=== PATIENT | male | born 1955 | race Caucasian/White ===

== ENCOUNTER → 2016-09-27 | Outpatient (CLI) | payer MEDICARE, MEDICAID ==
[~2016-09-27] VITALS: Ht 162.6 cm; Wt 63.5 kg
[~2016-09-27] MED LIST: ASPI81TA85 PO; ATEN50TA2 PO; CLAR10CA3 PO; COLA100C PO; FLON50SP; LIDOCAINE 2% INJ 100 MG/5 ML SDV (FOR ANES.) As Ordered ONE; LISI-542 PO; MIRA0.12 PO; NS 1,000 ML IV SCH; PRIL40CA PO; PROPOFOL 200 MG/20 ML VIAL As Ordered ONE; RANI15TA PO; TRAZ100T4 PO; VITA500046 PO
--- NOTE | 2016-09-27 11:23 | ROOR ---
Patient Name: Isaías Mckeon Procedure Date: 09/27/2016 10:57 AM Date of : 1955 Age: 60 Room: [facility] Gender: Male Note Status: Finalized Procedure: Colonoscopy Indications: Screening for colorectal malignant neoplasm Providers: Umer SOLIMAN MD Referring MD: See Booth MD Requesting Provider: Medicines: Monitored Anesthesia Care Complications: No immediate complications. Procedure: Pre-Anesthesia Assessment: - The heart rate, respiratory rate, oxygen saturations, blood pressure, adequacy of pulmonary ventilation, and response to care were monitored throughout the procedure. The Colonoscope was introduced through the anus and advanced to the cecum, identified by appendiceal orifice and ileocecal valve. The colonoscopy was performed without difficulty. The patient tolerated the procedure well. The quality of the bowel preparation was good. Findings: The perianal and digital rectal examinations were normal. (Exam: Complete, Prep: Excellent.) The colon (entire examined portion) appeared normal. Impression: (Exam: Complete, Prep: Excellent.) - The entire colon is normal. - No specimens collected. Recommendation: - Repeat colonoscopy in 10 years for screening purposes. Umer Soliman MD Umer SOLIMAN MD 09/27/2016 11:23:20 AM This report has been signed electronically. Number of Addenda: 0 Note Initiated On: 09/27/2016 10:57 AM Estimated Blood Loss: Estimated blood loss: none.
[2016-09-27 11:45] VITALS: BP 117/81
== END | disposition home or self-care (01) ==
LOC: M OPP 08:12
PROVIDERS: ATTEND Internal Medicine Gastroenterology
DX: Z12.11 Encounter for screening for malignant neoplasm of colon (principal); K59.09 Other constipation; I12.9 Hypertensive chronic kidney disease with stage 1 through stage 4 chronic kidney disease, or unspecified chronic kidney disease; N18.3 Chronic kidney disease, stage 3 (moderate); E78.5 Hyperlipidemia, unspecified; K58.9 Irritable bowel syndrome, unspecified; K21.9 Gastro-esophageal reflux disease without esophagitis; M19.90 Unspecified osteoarthritis, unspecified site; Q90.9 Down syndrome, unspecified; F03.90 Unspecified dementia, unspecified severity, without behavioral disturbance, psychotic disturbance, mood disturbance, and anxiety; Z86.73 Personal history of transient ischemic attack (TIA), and cerebral infarction without residual deficits; Z97.2 Presence of dental prosthetic device (complete) (partial); Z79.82 Long term (current) use of aspirin; Z79.899 Other long term (current) drug therapy; Z88.8 Allergy status to other drugs, medicaments and biological substances

== ENCOUNTER → 2017-01-13 | Outpatient (CLI) | payer MEDICARE, MEDICAID ==
[~2017-01-13] MED LIST changes: -COLA100C PO; +COLA100C3 PO; -LIDOCAINE 2% INJ 100 MG/5 ML SDV (FOR ANES.) As Ordered ONE; -NS 1,000 ML IV SCH; -PROPOFOL 200 MG/20 ML VIAL As Ordered ONE
[2017-01-13 13:22] LABS: BASO % 0.6 % (0.0-1.0); EOS # 0.3 K/mm3 (0.0-0.50); EOS % 4.7 % (0.0-3.0); LARGE UNSTAINED CELL # 0.1 K/mm3 (0.0-0.4); LARGE UNSTAINED CELL % 2.3 % (0.0-4.0); LYMPH # 1.3 K/mm3 (1.5-4.5); LYMPH % 22.5 % (24.0-44.0); MEAN CORPUSCULAR HEMOGLOBIN 31.6 pg (27.0-33.0); MEAN CORPUSCULAR HGB CONC 33.3 g/dl (32.0-36.5); MEAN CORPUSCULAR VOLUME 94.9 fl (80.0-96.0); MONO # 0.4 K/mm3 (0.0-0.8); NEUTROPHILS # 3.5 K/mm3 (1.8-7.7); PLATELET COUNT, AUTOMATED 198 k/mm3 (150-450); RED CELL DISTRIBUTION WIDTH 11.9 % (11.5-14.5); WHITE BLOOD COUNT 5.6 K/mm3 (4.0-10.0)
[2017-01-13 13:35] LABS: ALBUMIN 3.7 GM/DL (3.2-5.2); BILIRUBIN,TOTAL 0.5 MG/DL (0.2-1.0); CALCIUM LEVEL 8.5 MG/DL (8.8-10.2); CREATININE FOR GFR 1.33 MG/DL (0.70-1.30); GLOMERULAR FILTRATION RATE 57.8 (>49); TOTAL PROTEIN 7.4 GM/DL (6.4-8.2)
== END ==
LOC: M WUC 08:44
PROVIDERS: ATTEND Family Medicine
DX: N18.3 Chronic kidney disease, stage 3 (moderate) (principal); E55.9 Vitamin D deficiency, unspecified

== ENCOUNTER → 2017-06-09 | Outpatient (CLI) | payer MEDICARE, MEDICAID ==
[~2017-06-09] MED LIST changes: -COLA100C3 PO; +COLA100C5 PO; +TRAZ-136 PO; -TRAZ100T4 PO
[2017-06-09 09:51] LABS: ALBUMIN 3.8 GM/DL (3.2-5.2); ALBUMIN/GLOBULIN RATIO 0.93 (1.00-1.93); ALKALINE PHOSPHATASE 96 U/L (45-117); ALT/SGPT 32 U/L (12-78); ANION GAP 4 MEQ/L (8-16); AST/SGOT 20 U/L (15-37); BILIRUBIN,TOTAL 0.5 MG/DL (0.2-1.0); BLOOD UREA NITROGEN 24 MG/DL (7-18); CARBON DIOXIDE LEVEL 29 MEQ/L (21-32); CHLORIDE LEVEL 105 MEQ/L (98-107); CHOLESTEROL LEVEL 147 MG/DL (<200); GLOMERULAR FILTRATION RATE 54.5 (>49); GLUCOSE, FASTING 82 MG/DL (80-110); POTASSIUM SERUM 4.5 MEQ/L (3.5-5.1); SODIUM LEVEL 138 MEQ/L (136-145); TOTAL PROTEIN 7.9 GM/DL (6.4-8.2); TRIGLYCERIDES LEVEL 96 MG/DL (<150)
[2017-06-09 10:36] LABS: VITAMIN B12 LEVEL 549 PG/ML (247-911)
== END ==
LOC: M WUC 08:24
PROVIDERS: ATTEND Family Medicine
DX: E78.5 Hyperlipidemia, unspecified (principal); Z12.5 Encounter for screening for malignant neoplasm of prostate; N18.3 Chronic kidney disease, stage 3 (moderate)
CPT/HCPCS: 36415; 80053; 80061; 82550; 82607; 86140; G0103

== ENCOUNTER → 2017-09-21 | Outpatient (CLI) | payer MEDICARE, MEDICAID ==
[2017-09-21 18:33] LABS: BASO % 0.6 % (0.0-1.0); EOS # 0.2 10^3/uL (0.0-0.50); EOS % 4.3 % (0.0-3.0); HEMATOCRIT 47.6 % (42.0-52.0); HEMOGLOBIN 16.2 g/dl (14.0-18.0); IMMATURE GRANULOCYTE % 0.2 % (0-0); LYMPH # 1.3 10^3/uL (1.5-4.5); LYMPH % 24.1 % (24.0-44.0); MEAN CORPUSCULAR HEMOGLOBIN 30.7 pg (27.0-33.0); MEAN CORPUSCULAR VOLUME 90.3 fl (80.0-96.0); MONO # 0.5 10^3/uL (0.0-0.8); MONO % 10.1 % (0.0-5.0); NEUTROPHILS # 3.3 10^3/uL (1.8-7.7); NEUTROPHILS % 60.7 % (36.0-66.0); PLATELET COUNT, AUTOMATED 215 10^3/uL (150-450); RED BLOOD COUNT 5.27 10^6/uL (4.30-6.10); RED CELL DISTRIBUTION WIDTH 12.1 % (11.5-14.5); WHITE BLOOD COUNT 5.4 10^3/uL (4.0-10.0)
[2017-09-21 18:37] LABS: ESTIMATED AVERAGE GLUCOSE 114 MG/DL (60-110); HEMOGLOBIN A1c 5.6 %
[2017-09-21 18:40] LABS: ALBUMIN 3.8 GM/DL (3.2-5.2); ALBUMIN/GLOBULIN RATIO 1.03 (1.00-1.93); ALKALINE PHOSPHATASE 101 U/L (45-117); ALT/SGPT 26 U/L (12-78); ANION GAP 3 MEQ/L (8-16); AST/SGOT 22 U/L (7-37); BILIRUBIN,TOTAL 0.4 MG/DL (0.2-1.0); BLOOD UREA NITROGEN 19 MG/DL (7-18); CALCIUM LEVEL 8.6 MG/DL (8.8-10.2); CARBON DIOXIDE LEVEL 30 MEQ/L (21-32); CHLORIDE LEVEL 108 MEQ/L (98-107); FREE T4 1.05 NG/DL (0.76-1.46); GLOMERULAR FILTRATION RATE 59.4 (>49); GLUCOSE, FASTING 87 MG/DL (80-110); POTASSIUM SERUM 4.9 MEQ/L (3.5-5.1); SODIUM LEVEL 141 MEQ/L (136-145); TOTAL PROTEIN 7.5 GM/DL (6.4-8.2)
[2017-09-22 10:42] LABS: TOTAL 25(OH) VITAMIN D 73.1 NG/ML (30.0-100.0)
[2017-09-22 14:14] LABS: PTH INTACT 40.6 PG/ML (14.0-72.0)
== END ==
LOC: M WUC 08:29
DX: E78.5 Hyperlipidemia, unspecified (principal); I12.9 Hypertensive chronic kidney disease with stage 1 through stage 4 chronic kidney disease, or unspecified chronic kidney disease; N18.3 Chronic kidney disease, stage 3 (moderate); Z79.899 Other long term (current) drug therapy
CPT/HCPCS: 84443

== ENCOUNTER → 2018-01-31 | Outpatient (REF) | payer MEDICARE, MEDICAID ==
[2018-01-31 19:50] LABS: BASO # 0.1 10^3/uL (0.0-0.2); BASO % 0.9 % (0.0-1.0); EOS # 0.3 10^3/uL (0.0-0.50); EOS % 4.3 % (0.0-3.0); HEMATOCRIT 45.9 % (42.0-52.0); HEMOGLOBIN 15.3 g/dl (13.5-17.5); IMMATURE GRANULOCYTE % 0.2 % (0-3.0); LYMPH # 1.4 10^3/uL (1.5-4.5); LYMPH % 23.8 % (24.0-44.0); MEAN CORPUSCULAR HEMOGLOBIN 30.5 pg (27.0-33.0); MEAN CORPUSCULAR HGB CONC 33.3 g/dl (32.0-36.5); MEAN CORPUSCULAR VOLUME 91.4 fl (80.0-96.0); MONO # 0.6 10^3/uL (0.0-0.8); NEUTROPHILS # 3.5 10^3/uL (1.8-7.7); NEUTROPHILS % 60.8 % (36.0-66.0); PLATELET COUNT, AUTOMATED 201 10^3/uL (150-450); RED BLOOD COUNT 5.02 10^6/uL (4.30-6.10); RED CELL DISTRIBUTION WIDTH 12.4 % (11.5-14.5); WHITE BLOOD COUNT 5.8 10^3/uL (4.0-10.0)
[2018-01-31 20:13] LABS: ALBUMIN 3.6 GM/DL (3.2-5.2); ALKALINE PHOSPHATASE 95 U/L (45-117); ALT/SGPT 28 U/L (12-78); ANION GAP 5 MEQ/L (8-16); AST/SGOT 19 U/L (7-37); BILIRUBIN,TOTAL 0.4 MG/DL (0.2-1.0); BLOOD UREA NITROGEN 16 MG/DL (7-18); CALCIUM LEVEL 8.3 MG/DL (8.8-10.2); CARBON DIOXIDE LEVEL 28 MEQ/L (21-32); CHLORIDE LEVEL 106 MEQ/L (98-107); CREATININE FOR GFR 1.34 MG/DL (0.70-1.30); GLOMERULAR FILTRATION RATE 57.1 (>49); GLUCOSE, FASTING 86 MG/DL (70-100); POTASSIUM SERUM 4.7 MEQ/L (3.5-5.1); PSA SCREENING 1.68 NG/ML (< 4.0); SODIUM LEVEL 139 MEQ/L (136-145); TOTAL PROTEIN 7.2 GM/DL (6.4-8.2)
== END ==
LOC: M LABDRWAD 12:12
DX: N18.3 Chronic kidney disease, stage 3 (moderate) (principal); Z12.5 Encounter for screening for malignant neoplasm of prostate
CPT/HCPCS: 80053

== ENCOUNTER → 2018-06-06 | Outpatient (CLI) | payer MEDICARE, MEDICAID ==
[2018-06-06 18:29] LABS: BLOOD UREA NITROGEN 13 MG/DL (7-18); CREATININE FOR GFR 1.24 MG/DL (0.70-1.30); GLUCOSE, FASTING 86 MG/DL (70-100)
[2018-06-06 18:30] LABS: ALBUMIN 3.8 GM/DL (3.2-5.2); ALBUMIN/GLOBULIN RATIO 1.06 (1.00-1.93); ALKALINE PHOSPHATASE 98 U/L (45-117); ALT/SGPT 26 U/L (12-78); ANION GAP 9 MEQ/L (8-16); AST/SGOT 16 U/L (7-37); BILIRUBIN,TOTAL 0.5 MG/DL (0.2-1.0); C REACTIVE PROTEIN QUANTITATIV < 0.30 MG/DL (0.00-0.30); CALCIUM LEVEL 8.9 MG/DL (8.8-10.2); CARBON DIOXIDE LEVEL 23 MEQ/L (21-32); CHLORIDE LEVEL 109 MEQ/L (98-107); CHOLESTEROL LEVEL 126 MG/DL (<200); CHOLESTEROL RISK RATIO 2.571 (<5); CPK CREATINE PHOSPHOKINASE 95 U/L (39-308); GLOMERULAR FILTRATION RATE > 60.0 (>49); HDL CHOLESTEROL 49 MG/DL (>40); LDL CHOLESTEROL 59 MG/DL (<100); NON-HDL-C 77 MG/DL; POTASSIUM SERUM 4.3 MEQ/L (3.5-5.1); SODIUM LEVEL 141 MEQ/L (136-145); TOTAL PROTEIN 7.4 GM/DL (6.4-8.2); TRIGLYCERIDES LEVEL 91 MG/DL (<150)
[2018-06-06 19:20] LABS: ESTIMATED AVERAGE GLUCOSE 111 MG/DL (60-110); HEMOGLOBIN A1c 5.5 %
[2018-06-09 14:13] LABS: INSULIN LEVEL 9.6 uIU/mL (2.6-24.9)
== END ==
LOC: M WUC 08:34
DX: E78.5 Hyperlipidemia, unspecified (principal); R73.02 Impaired glucose tolerance (oral)
CPT/HCPCS: 82550

== ENCOUNTER → 2018-10-30 | Outpatient (CLI) | payer MEDICARE, MEDICAID ==
[~2018-10-30] MED LIST changes: -TRAZ-136 PO; +TRAZ-163 PO
[2018-10-30 13:18] LABS: BASO % 0.7 % (0.0-1.0); EOS # 0.2 10^3/uL (0.0-0.50); EOS % 2.9 % (0.0-3.0); HEMATOCRIT 44.4 % (42.0-52.0); HEMOGLOBIN 14.9 g/dl (13.5-17.5); LYMPH # 1.2 10^3/uL (1.5-4.5); LYMPH % 19.7 % (24.0-44.0); MEAN CORPUSCULAR HEMOGLOBIN 30.5 pg (27.0-33.0); MEAN CORPUSCULAR HGB CONC 33.6 g/dl (32.0-36.5); MONO # 0.6 10^3/uL (0.0-0.8); MONO % 9.7 % (0.0-5.0); NEUTROPHILS # 3.9 10^3/uL (1.8-7.7); NEUTROPHILS % 66.7 % (36.0-66.0); PLATELET COUNT, AUTOMATED 192 10^3/uL (150-450); RED BLOOD COUNT 4.88 10^6/uL (4.30-6.10); WHITE BLOOD COUNT 5.9 10^3/uL (4.0-10.0)
[2018-10-30 13:33] LABS: ALBUMIN 3.8 GM/DL (3.2-5.2); BILIRUBIN,TOTAL 0.6 MG/DL (0.2-1.0); CALCIUM LEVEL 8.6 MG/DL (8.8-10.2); CREATININE FOR GFR 1.33 MG/DL (0.70-1.30); GLOMERULAR FILTRATION RATE 57.4 (>49); POTASSIUM SERUM 4.5 MEQ/L (3.5-5.1); TOTAL PROTEIN 7.1 GM/DL (6.4-8.2)
[2018-10-30 15:56] LABS: PTH INTACT 50.5 PG/ML (18.5-88.0)
== END ==
LOC: M WUC 08:28
PROVIDERS: ATTEND Family Medicine
DX: N18.3 Chronic kidney disease, stage 3 (moderate) (principal)

== ENCOUNTER → 2019-02-10 | Outpatient (CLI) | payer MEDICARE, MEDICAID ==
--- NOTE | 2019-02-10 11:47 | REP ---
Unilateral right ribs PA chest of five views History: Strain Comparison: 07/28/2012 The lungs are clear. The heart is normal in size. The pulmonary vasculature is normal in appearance. Impression: No acute disease. Electronically Signed by Jann Frausto MD 02/10/2019 11:38 A
== END ==
LOC: M WUC 11:15
PROVIDERS: ATTEND Physician Assistant
DX: S29.011A Strain of muscle and tendon of front wall of thorax, initial encounter (principal); X58.XXXA Exposure to other specified factors, initial encounter; Y92.89 Other specified places as the place of occurrence of the external cause

== ENCOUNTER → 2019-02-14 | Outpatient (CLI) | payer MEDICARE, MEDICAID ==
[2019-02-14 18:04] LABS: ALBUMIN 3.4 GM/DL (3.2-5.2); ALT/SGPT 25 U/L (12-78); BILIRUBIN,TOTAL 0.4 MG/DL (0.2-1.0); BLOOD UREA NITROGEN 14 MG/DL (7-18); CALCIUM LEVEL 8.5 MG/DL (8.8-10.2); CARBON DIOXIDE LEVEL 27 MEQ/L (21-32); CHLORIDE LEVEL 107 MEQ/L (98-107); CHOLESTEROL LEVEL 123 MG/DL (<200); CHOLESTEROL RISK RATIO 2.928 (<5); FREE T4 0.99 NG/DL (0.76-1.46); GLOMERULAR FILTRATION RATE > 60.0 (>49); GLUCOSE, FASTING 75 MG/DL (70-100); HDL CHOLESTEROL 42 MG/DL (>40); LDL CHOLESTEROL 67 MG/DL (<100); NON-HDL-C 81 MG/DL; POTASSIUM SERUM 4.3 MEQ/L (3.5-5.1); SODIUM LEVEL 143 MEQ/L (136-145); TRIGLYCERIDES LEVEL 71 MG/DL (<150)
[2019-02-14 18:11] LABS: HEMOGLOBIN A1c 5.6 %
[2019-02-14 18:29] LABS: APPEARANCE, URINE CLEAR (CLEAR); BACTERIA, URINE AUTO NEGATIVE (NEGATIVE); BILIRUBIN, URINE AUTO NEGATIVE (NEGATIVE); BLOOD, URINE BLOOD NEGATIVE (NEGATIVE); COLOR, URINE YELLOW (YELLOW); GLUCOSE, URINE (UA) AUTO NEGATIVE (NEGATIVE); KETONE, URINE AUTO NEGATIVE (NEGATIVE); LEUKOCYTE ESTERASE, URINE AUTO NEGATIVE (NEGATIVE); MUCUS, URINE SMALL (NEGATIVE); NITRITE, URINE AUTO NEGATIVE (NEGATIVE); PROTEIN, URINE AUTO NEGATIVE (NEGATIVE); RBC, URINE AUTO 3 /HPF (0-3); SPECIFIC GRAVITY URINE AUTO 1.013 (1.002-1.035); SQUAMOUS EPITHELIAL CELL UR AU 0 /HPF (0-6); UROBILINOGEN, URINE AUTO 0.2 mg/dL (0.0-2.0); WBC, URINE AUTO 1 /HPF (0-3)
[2019-02-14 18:32] LABS: MALB URINE SIEMENS 13.7 MG/L; MAU/CREAT RATIO 11.7 MCG/MG (0.0-30.0)
== END ==
LOC: M WUC 08:44
PROVIDERS: ATTEND Family Medicine
DX: R73.02 Impaired glucose tolerance (oral) (principal)

== ENCOUNTER → 2019-07-02 | Outpatient (CLI) | payer MEDICARE, MEDICAID ==
[2019-07-02 10:09] LABS: BASO % 0.6 % (0.0-1.0); EOS # 0.1 10^3/uL (0.0-0.5); EOS % 2.3 % (0.0-3.0); HEMATOCRIT 45.3 % (42.0-52.0); HEMOGLOBIN 15.3 g/dl (13.5-17.5); LYMPH # 0.8 10^3/uL (1.5-5.0); LYMPH % 16.2 % (24.0-44.0); MEAN CORPUSCULAR HEMOGLOBIN 30.8 pg (27.0-33.0); MEAN CORPUSCULAR HGB CONC 33.8 g/dl (32.0-36.5); MEAN CORPUSCULAR VOLUME 91.1 fl (80.0-96.0); MONO # 0.6 10^3/uL (0.0-0.8); MONO % 12.5 % (0.0-5.0); NEUTROPHILS # 3.3 10^3/uL (1.5-8.5); NEUTROPHILS % 68.2 % (36.0-66.0); PLATELET COUNT, AUTOMATED 188 10^3/uL (150-450); RED BLOOD COUNT 4.97 10^6/uL (4.30-6.10); WHITE BLOOD COUNT 4.9 10^3/uL (4.0-10.0)
[2019-07-02 10:39] LABS: ALBUMIN 3.6 GM/DL (3.2-5.2); ALT/SGPT 25 U/L (12-78); BILIRUBIN,TOTAL 0.5 MG/DL (0.2-1.0); BLOOD UREA NITROGEN 13 MG/DL (7-18); CALCIUM LEVEL 8.6 MG/DL (8.8-10.2); CARBON DIOXIDE LEVEL 29 MEQ/L (21-32); CHLORIDE LEVEL 107 MEQ/L (98-107); CREATININE FOR GFR 1.21 MG/DL (0.70-1.30); GLOMERULAR FILTRATION RATE > 60.0 (>49); GLUCOSE, FASTING 79 MG/DL (70-100); POTASSIUM SERUM 4.4 MEQ/L (3.5-5.1); SODIUM LEVEL 141 MEQ/L (136-145); TOTAL PROTEIN 7.3 GM/DL (6.4-8.2)
[2019-07-02 10:45] LABS: PTH INTACT 56.2 PG/ML (18.5-88.0); TOTAL 25(OH) VITAMIN D 92.6 NG/ML (30.0-100.0)
[2019-07-02 10:48] LABS: HEMOGLOBIN A1c 5.1 %
== END ==
LOC: M WUC 08:17
PROVIDERS: ATTEND Family Medicine
DX: R73.02 Impaired glucose tolerance (oral) (principal); Z12.5 Encounter for screening for malignant neoplasm of prostate; E55.9 Vitamin D deficiency, unspecified
CPT/HCPCS: 36415; 80053; 82306; 83036; 83970; 85025; 85046; G0103

== ENCOUNTER 2019-07-25 09:29 | Inpatient (IN) | payer MEDICARE, MEDICAID ==
[~2019-07-25] VITALS: Ht 157.5 cm; Wt 66.6 kg
[2019-07-25] MEDS: DOCUSATE SODIUM 100 MG CAP PO SCH ×2 (09:00→21:43)
[~2019-07-25 09:29] MED LIST changes: -FLON50SP; +FLON50SP NARES
--- NOTE | 2019-07-25 10:10 | REP ---
CT brain without contrast: History: CVA. Comparison study: September 27, 2013. Findings: Preliminary digital upholstery technician radiograph is unremarkable. The bony calvarium is intact. Vascular calcification is again noted in the distal internal carotid and distal vertebral arteries. There is mild generalized volume loss. There is no evidence of intracranial hemorrhage. There are small vessel changes in the periventricular white matter of the frontal lobes unchanged. No acute infarction is seen. No mass or midline shift is observed. Impression: No acute intracranial abnormality. Small vessel atherosclerotic changes. Electronically Signed by Catalino Barrios MD 07/25/2019 10:02 A
[2019-07-25] MEDS ORDERED: VITA500045 PO (10:21)
[2019-07-25] MEDS ORDERED: ATEN25TA PO (10:21)
[2019-07-25] MEDS ORDERED: ATOR1TAB21 PO (10:21)
[2019-07-25] MEDS ORDERED: OMEP-221 PO (10:21)
[2019-07-25] MEDS ORDERED: FLUTISP NARES (10:23)
[2019-07-25 10:42] LABS: BASO # 0.1 10^3/uL (0.0-0.2); BASO % 1.1 % (0.0-1.0); EOS # 0.1 10^3/uL (0.0-0.5); HEMATOCRIT 45.2 % (42.0-52.0); HEMOGLOBIN 15.4 g/dl (13.5-17.5); LYMPH # 1.1 10^3/uL (1.5-5.0); LYMPH % 17.9 % (24.0-44.0); MEAN CORPUSCULAR HEMOGLOBIN 30.9 pg (27.0-33.0); MEAN CORPUSCULAR HGB CONC 34.1 g/dl (32.0-36.5); MEAN CORPUSCULAR VOLUME 90.6 fl (80.0-96.0); MONO # 0.8 10^3/uL (0.0-0.8); MONO % 11.8 % (0.0-5.0); NEUTROPHILS # 4.3 10^3/uL (1.5-8.5); NEUTROPHILS % 66.9 % (36.0-66.0); PLATELET COUNT, AUTOMATED 200 10^3/uL (150-450); RED BLOOD COUNT 4.99 10^6/uL (4.30-6.10); WHITE BLOOD COUNT 6.4 10^3/uL (4.0-10.0)
[2019-07-25 10:52] LABS: INR 1.1; PROTHROMBIN TIME 13.9 SECONDS (11.8-14.0)
[2019-07-25 10:54] LABS: PARTIAL THROMBOPLASTIN TIME 27.2 SECONDS (25.0-38.4)
--- NOTE | 2019-07-25 11:06 | REP ---
Portable chest x-ray: Single view. History: CVA. Comparison chest x-ray: February 10, 2019. Findings: EKG monitoring electrodes are seen. The lungs are symmetrically aerated and free of infiltrate. Pleural angles are sharp. The aorta somewhat tortuous. Heart size is normal. No significant bony abnormality. Impression: No active disease. Electronically Signed by Catalino Barrios MD 07/25/2019 10:57 A
[2019-07-25 11:07] LABS: BLOOD UREA NITROGEN 18 MG/DL (7-18); CALCIUM LEVEL 8.7 MG/DL (8.8-10.2); CARBON DIOXIDE LEVEL 26 MEQ/L (21-32); CHLORIDE LEVEL 109 MEQ/L (98-107); CK-MB VALUE MASS 1.3 NG/ML (<3.6); CPK CREATINE PHOSPHOKINASE 106 U/L (39-308); CREATININE FOR GFR 1.41 MG/DL (0.70-1.30); GLOMERULAR FILTRATION RATE 53.7 (>49); GLUCOSE, FASTING 119 MG/DL (70-100); MB/CK RELATIVE INDEX 1.23 (< OR =4); POTASSIUM SERUM 3.8 MEQ/L (3.5-5.1); SODIUM LEVEL 142 MEQ/L (136-145); TROPONIN I < 0.02 NG/ML (< 0.10)
--- NOTE | 2019-07-25 12:17 | ECGEPIP ---
[facility] - ED Test Date: 2019-07-25 Pat Name: NELI FRANKLIN Department: Room: - Gender: Male Hot Box Checker: Austin NAVARRO : 1955 Requested By: Waldo Solis Order Number: [id number] Reading MD: Elise Villarreal Measurements Intervals [place] Rate: 83 P: 47 CA: 210 QRS: -1 QRSD: 93 T: 12 QT: 338 QTc: 398 Interpretive Statements SINUS RHYTHM WITH FIRST DEGREE AV BLOCK NONSPECIFIC T-WAVE ABNORMALITY NO PRIOR Electronically Signed on 07-25-2019 12:16:41 EST by Elise Villarreal
[2019-07-25] MEDS ORDERED: FLUTICASONE PROP 0.05% NASAL SPRAY 16 GM (FLONASE) NARES PRN (13:45)
--- NOTE | 2019-07-25 13:51 | HPEPDOC ---
[facility] Medical History & Physical Date of Admission Jul 25, 2019 Date of Service: Jul 25, 2019 Primary Care Physician: See Booth M.D. History and Physical CHIEF COMPLAINT: neurologic changes HISTORY OF PRESENT ILLNESS: Patient is from [facility], and during breakfast was noted to be drooling and staring at staff. Staff noted patient was incoherent, and this is a change from his usual baseline. He typically can point and shake his head to communicate, but is otherwise non-verbal. After breakfast required assistance to walk, and complained of headache. In EMS, noted left sided deficits, non-productive cough. In ER, family at bedside. Patient is responsive, and family states almost back to baseline, but still has left sided deficits, but much improved. PAST MEDICAL HISTORY: Hypertension Mental retardation, mild Dementia, Alzheimer's Allergic Rhinitis Xerosis Hyperlipidemia 2B GERD CKD III ALLERGIES: Please see below. REVIEW OF SYSTEMS: Unable to obtain, patient is non-verbal. HOME MEDICATIONS: Please see below. PHYSICAL EXAMINATION: VITAL SIGNS: See below GENERAL APPEARANCE: NAD, lying comfortably in bed HEENT: NC/AT, PERRL, no facial asymmetry CARDIOVASCULAR: +S1S2, RRR LUNGS: CTA B/L ABDOMEN: soft, NT, +BS NEUROLOGICAL: sensation appears intact throughout, diminished strength LUE LABORATORY DATA: See below. MICROBIOLOGY: Please see below. ASSESSMENT: 63yo male for left sided deficits, resolving, concerns for TIA/CVA. PLAN: #left sided deficits - resolving - already on statin therapy - CT head negative - repeat CT tomorrow, doubt patient will tolerate MRI - carotid US, telemetry monitoring, echocardiogram - neurology c/s pending #Hypertension - permissive hypertension for 24 hours #Mental retardation, mild #Dementia, Alzheimer's #Allergic Rhinitis #Xerosis #Hyperlipidemia 2B - continue statin therapy #DVT prophylaxis - heparin SC #GERD #CKD III Vital Signs Vital Signs Date Time Temp Pulse Resp B/P (MAP) Pulse Ox O2 Delivery O2 Flow Rate FiO2 07/25/19 09:59 85 148/96 (113) 97 Room Air 07/25/19 09:47 97.3 18 Laboratory Data Labs 24H Laboratory Tests 2 07/25/19 10:31: Immature Granulocyte % (Auto) 0.3, Neutrophils (%) (Auto) 66.9H, Lymphocytes (%) (Auto) 17.9L, Monocytes (%) (Auto) 11.8H, Eosinophils (%) (Auto) 2.0, Basophils (%) (Auto) 1.1H, Neutrophils # (Auto) 4.3, Lymphocytes # (Auto) 1.1L, Monocytes # (Auto) 0.8, Eosinophils # (Auto) 0.1, Basophils # (Auto) 0.1, Nucleated Red Blood Cells % (auto) 0.0, Prothrombin Time 13.9, Prothromb Time International Ratio 1.10, Activated Partial Thromboplast Time 27.2 07/25/19 10:32: Anion Gap 7L, Glomerular Filtration Rate 53.7, Calcium Level 8.7L, Total C reatine Kinase 106, Creatine Kinase MB 1.3, Creatine Kinase MB Relative Index 1.23, Troponin I < 0.02 CBC/BMP Laboratory Tests 07/25/19 10:31 07/25/19 10:32 Home Medications Scheduled Aspirin (Aspir 81) 81 Mg Tab, 81 MG PO DAILY Atenolol (Atenolol) 25 Mg Tablet, 25 MG PO DAILY Atorvastatin Calcium (Atorvastatin Calcium) 20 Mg Tablet, 20 MG PO QHS Docusate Sodium (Colace) 100 Mg Cap, 100 MG PO BID Ergocalciferol (Vitamin D2) (Vitamin D2) 50,000 Unit Capsule, 50,000 UNIT PO Q2WK 1st and 15th Lisinopril (Lisinopril) 5 Mg Tab, 5 MG PO DAILY Loratadine (Claritin) 10 Mg Cap, 10 MG PO DAILY Omeprazole (Omeprazole) 40 Mg Capsule.dr, 40 MG PO DAILY Ranitidine Hcl (Ranitidine HCl) 150 Mg Tab, 1 TAB PO BID Trazodone HCl (Trazodone HCl) 100 Mg Tab, 100 MG PO QHS Scheduled PRN Fluticasone Propionate (Fluticasone Propionate) 16 Gm Pointblank.susp, 1 SPRAY NARES DAILY PRN for CONGESTION Allergies Coded Allergies: No Known Allergies (Verified , 10/18/04) A-FIB/CHADSVASC A-FIB History Current/History of A-Fib/PAF?: No MEGAN HODGSON MD Jul 25, 2019 11:17
[2019-07-25 14:15] VITALS: BP 131/83
[2019-07-25 16:00] VITALS: BP 140/87
[2019-07-25] MEDS: ATENOLOL 25 MG TAB PO SCH (17:25)
[2019-07-25] MEDS: ASPIRIN 81 MG ENTERIC TAB PO SCH (17:25)
[2019-07-25] MEDS: LORATADINE 10 MG TAB PO SCH (17:25)
[2019-07-25] MEDS: LISINOPRIL 5 MG TAB PO SCH (17:25)
[2019-07-25] MEDS ORDERED: ONDANSETRON 4MG/2ML VIAL (J2405) IV PRN (18:00)
[2019-07-25 20:00] VITALS: BP 123/60
[2019-07-25] MEDS ORDERED: ATORVASTATIN 20 MG TAB PO SCH (21:00)
[2019-07-25] MEDS: traZODone 100 MG TAB PO SCH (21:44)
[2019-07-26] VITALS (7 sets, daily range): BP systolic 102–158; BP diastolic 60–96
[2019-07-26 06:28] LABS: HEMATOCRIT 44.4 % (42.0-52.0); HEMOGLOBIN 15.2 g/dl (13.5-17.5); MEAN CORPUSCULAR HEMOGLOBIN 30.8 pg (27.0-33.0); MEAN CORPUSCULAR HGB CONC 34.2 g/dl (32.0-36.5); MEAN CORPUSCULAR VOLUME 90.1 fl (80.0-96.0); PLATELET COUNT, AUTOMATED 208 10^3/uL (150-450); RED BLOOD COUNT 4.93 10^6/uL (4.30-6.10); WHITE BLOOD COUNT 9.7 10^3/uL (4.0-10.0)
[2019-07-26 06:52] LABS: BLOOD UREA NITROGEN 15 MG/DL (7-18); CALCIUM LEVEL 8.5 MG/DL (8.8-10.2); CARBON DIOXIDE LEVEL 26 MEQ/L (21-32); CHLORIDE LEVEL 107 MEQ/L (98-107); CREATININE FOR GFR 1.24 MG/DL (0.70-1.30); GLOMERULAR FILTRATION RATE > 60.0 (>49); GLUCOSE, FASTING 78 MG/DL (70-100); POTASSIUM SERUM 3.5 MEQ/L (3.5-5.1); SODIUM LEVEL 139 MEQ/L (136-145)
--- NOTE | 2019-07-26 06:54 | REP ---
Duplex carotid sonography: History: CVA. Findings: Antegrade flow was observed in the left vertebral artery. The right vertebral artery could not be seen. Scan quality is inhibited in general by patient movement. Right carotid: Right common carotid artery shows minimal diffuse intimal thickening. There is mild soft plaquing in the right carotid bulb. On color Doppler interrogation, normal wave form velocities are seen. PSV EDV Right CCA 73.0 cm/s Right ICA 45.0 18.0 Right ECA 89.0 Right ICA/CCA ratio normal 0.6. Impression: Less than 50% category narrowing in the right internal carotid artery. Left carotid: Left common carotid artery is unremarkable. There is a mild soft plaquing in the left carotid bulb. Normal waveforms and velocities are observed in the left carotid bulb and proximal ICA. PSV EDV Left CCA 67.0 cm/s Left ICA 52.0 22.0 Left ECA 83.0 Left ICA/CCA ratio normal 0.8. Impression: Less than 50% category narrowing in the left ICA by Doppler velocity criteria. Electronically Signed by Catalino Barrios MD 07/26/2019 08:36 A
[2019-07-26] MEDS ORDERED: MIRALAX *UNIT DOSE* 17GM PACKET PO PRN (09:00)
--- NOTE | 2019-07-26 09:04 | IPNPDOC ---
Subjective Date Seen The patient was seen on 07/26/19. Subjective Chief Complaint/HPI TIA Events since last encounter Admitted overnight for TIA vs stroke with Left sided weakness. Neuro plans on evaluating patient today. Continues with left sided weakness. c/o [place]. Nursing noting increased flatus and c/o abdominal pain. Patient is non-verbal but is able to point and shake head yes or no. ENT: Reports: Head Aches Pulmonary: Denies: Dyspnea, Cough Cardiovascular: Denies: Chest Pain, Palpitations, Orthopnea, Paroxysmal Noc. Dyspnea, Lt Headedness Gastrointestinal: Reports: Other Symptoms (flatus); Denies: Nausea, Vomiting, Abdominal Pain, Diarrhea, Constipation Genitourinary: Denies: Dysuria, Frequency, Incontinence, Retention Objective Physical Examination General Exam: Positive: Alert, Cooperative, No Acute Distress Neck Exam: Positive: Supple; Negative: JVD, thyromegaly Chest Exam: Positive: Clear to auscultation, Normal air movement Telemetry: Positive: No significant arrhythmia Abdomen Exam: Positive: Normal bowel sounds, Soft; Negative: Tenderness, Hepatospenomegaly Extremity Exam: Positive: Normal pulses; Negative: Clubbing, Cyanosis, Edema Neuro Exam: Positive: Other (LUE 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 yes/no with shaking hiead) Assessment /Plan Problems (1) TIA (transient ischemic attack) Status: Acute Problem Text: prior hx of CVA. Symptomatic while on baby aspirin as outpatient. Increase atorvastatin to 40 mg po daily. Start on Plavix 75 mg po daily. Attempt MRI/MRA brain. PT/OT. (2) HTN (hypertension) Status: Chronic Response to Treatment: Stable Problem Text: Continue Metoprolol and Lisinopril. (3) Hyperlipidemia Status: Chronic Response to Treatment: Stable Problem Text: HD atorva 20 increased to HI 40 (4) GERD (gastroesophageal reflux disease) Status: Chronic Problem Text: takes Omeprazole and ranitidine outpatient. Added on Pantoprazole. (5) Right hemisphere, cerebral infarction Status: Chronic Problem Text: prior R CR lacunar CVAs (for which px was on asa 81 on admission) Plan/VTE VTE Prophylaxis Ordered?: Yes VTE Exclusion Mechanical Proph: Other VS, I&O, 24H, Fishbone Vital Signs/I&O Vital Signs Date Time Temp Pulse Resp B/P (MAP) Pulse Ox O2 Delivery O2 Flow Rate FiO2 07/26/19 08:00 99.1 72 18 158/96 (116) 95 Room Air I&O- Last 24 Hours up to 6 AM 07/26/19 06:00 Intake Total 760 ml Output Total 700 ml Balance 60 ml Laboratory Data 24H LABS Laboratory Tests 2 07/25/19 10:31: Immature Granulocyte % (Auto) 0.3, Neutrophils (%) (Auto) 66.9H, Lymphocytes (%) (Auto) 17.9L, Monocytes (%) (Auto) 11.8H, Eosinophils (%) (Auto) 2.0, Basophils (%) (Auto) 1.1H, Neutrophils # (Auto) 4.3, Lymphocytes # (Auto) 1.1L, Monocytes # (Auto) 0.8, Eosinophils # (Auto) 0.1, Basophils # (Auto) 0.1, Nucleated Red Blood Cells % (auto) 0.0, Prothrombin Time 13.9, Prothromb Time International Ratio 1.10, Activated Partial Thromboplast Time 27.2 07/25/19 10:32: Anion Gap 7L, Glomerular Filtration Rate 53.7, Calcium Level 8.7L, Total Creatine Kinase 106, Creatine Kinase MB 1.3, Creatine Kinase MB Relative Index 1.23, Troponin I < 0.02 07/25/19 12:10: Urine Color YELLOW, Urine Appearance CLEAR, Urine pH 6.0, Urine Specific [place] 1.011, Urine Protein NEGATIVE, Urine Glucose (UA) NEGATIVE, Urine Ketones NEGATIVE, Urine Blood NEGATIVE, Urine Nitrite NEGATIVE, Urine Bilirubin NEGATIVE, Urine Urobilinogen 0.2, Urine Leukocyte Esterase NEGATIVE, Urine WBC (Auto) 1, Urine RBC (Auto) 1, Urine Hyaline Casts (Auto) 0, Urine Bacteria (Auto) NEGATIVE, Urine Squamous Epithelial Cells 0, Urine Sperm (Auto) 07/26/19 05:35: Nucleated Red Blood Cells % (auto) 0.0, Anion Gap 6L, Glomerular Filtration Rate > 60.0, Calcium Level 8.5L CBC/BMP Laboratory Tests 07/25/19 10:31 07/25/19 10:32 07/26/19 05:35 Mariella Hodge Jul 26, 2019 09:04 See Booth M.D. Jul 26, 2019 17:07
--- NOTE | 2019-07-26 09:45 | REP ---
CT brain: 07/26/2019. Indication: Stroke. Comparison: Yesterday. Technique: Unenhanced axial CT images of the brain were obtained from skull base to vertex. Findings: Right frontoparietal loss of nath-white differentiation/hypoattenuation is noted with local sulcal effacement. There is no shift of the midline structures or hemorrhage. No additional areas of abnormal parenchymal attenuation are noted. Impression: Evolving right MCA infarction without hemorrhagic transformation or significant mass effect. Electronically Signed by Pablo Vick DO 07/26/2019 09:37 A
[2019-07-26] MEDS: ASPIRIN 81 MG ENTERIC TAB PO SCH ×2 (09:52→09:55)
[2019-07-26] MEDS: DOCUSATE SODIUM 100 MG CAP PO SCH ×2 (09:55→20:55)
[2019-07-26] MEDS: PANTOPRAZOLE 40MG TAB (PROTONIX) PO SCH (09:55)
[2019-07-26] MEDS: LORATADINE 10 MG TAB PO SCH (09:55)
[2019-07-26] MEDS: LISINOPRIL 5 MG TAB PO SCH (09:55)
[2019-07-26] MEDS: CLOPIDOGREL 75 MG TAB PO SCH (09:55)
[2019-07-26] MEDS: ATENOLOL 25 MG TAB PO SCH (09:56)
[2019-07-26] MEDS: ATORVASTATIN 20 MG TAB PO SCH (09:57)
--- NOTE | 2019-07-26 09:59 | REP ---
Acute abdomen series: Three views. History: Abdominal discomfort. History of constipation. Upright chest radiograph is normal. There is no evidence of infiltrate or free subdiaphragmatic air. EKG monitoring electrodes are seen. Heart size is normal. No change from comparison study July 25, 2019. Supine and erect views of the abdomen show air and stool in a nondistended colon. There is mild formed stool in the rectum. Some vascular calcification is seen. Psoas margins and flank stripes are intact. No small bowel dilation is seen. No evidence of free air or significant air fluid level. Impression: Normal bowel gas pattern. Electronically Signed by Catalino Barrios MD 07/26/2019 09:50 A
[2019-07-26] MEDS ORDERED: ALPRAZolam 0.5 MG TAB PO ONE (10:00)
[2019-07-26] MEDS ORDERED: SLF 3 ML SYR IV PRN (12:00)
[2019-07-26] MEDS: SLF 3 ML SYR IV SCH ×2 (14:00→20:55)
[2019-07-26] MEDS: traZODone 100 MG TAB PO SCH (20:55)
[2019-07-27 03:33] VITALS: BP 110/57
[2019-07-27] MEDS: SLF 3 ML SYR IV SCH ×3 (05:29→22:17)
--- NOTE | 2019-07-27 07:23 | ECHO ---
DATE OF PROCEDURE: 07/26/2019 DATE OF : 1955 AGE: 63 GENDER: Male. HEIGHT: 62 inches WEIGHT: 138 pounds BODY SURFACE AREA: 1.64 meters squared INPATIENT: U - Room 3222 REFERRING PHYSICIAN: Dr. Jann Serrano INDICATIONS: CVA MEASUREMENTS 2-D Measurements: RV: 2.8 cm LV: 4.3 cm Septum: 1.0 cm Posterior wall: 1.0 cm Aortic root: 3.1 cm LA: 3.7 cm LVEF: 75% Doppler Measurements: AV: 1.36 m/s LVOT: 1.13 m/s LVOT diameter: 2.0 cm MV - E 57 A 87 E/A ratio 0.6 Early mitral deceleration time: 288 ms E prime medial: 5.5 A prime medial: 10.1 E prime lateral: 11.1 Average E/E prime ratio: 6.9; PCWP 10.5 mmHg PV: 0.9 m/s Pulmonary artery acceleration time: 120 ms PASP: 29 mmHg COMMENTS: Normal sinus rhythm without intraventricular conduction disturbance. M-mode and two-dimensional echocardiography was performed with pulsed, continuous wave, color flow and tissue Doppler studies. Normal left ventricular and wall thickness with hyperkinetic wall motion. Left atrium upper limits of normal in size with grade 1 LV diastolic dysfunction, but currently normal estimated mean left atrial pressure. Normal right heart chamber sizes and motion and estimated pulmonary arterial pressure. We could not visualize his inferior vena cava to estimate his central venous pressure, but it is unlikely this was elevated. Aortic valvular sclerosis without functional valvular abnormality. Normal aortic root size. Mild mitral annular thickening with adequate leaflet excursion and very mild insufficiency. Normal appearing tricuspid valve with trace insufficiency. Unable to detect an intracardiac mass or pericardial effusion. In light of his aortic valve findings, if a cardiac source of embolic material is seriously suspect a transesophageal echocardiogram would be advised. CARMEN
[2019-07-27 07:40] LABS: BASO % 0.5 % (0.0-1.0); EOS # 0.3 10^3/uL (0.0-0.5); EOS % 3.4 % (0.0-3.0); HEMATOCRIT 46.3 % (42.0-52.0); HEMOGLOBIN 15.6 g/dl (13.5-17.5); LYMPH # 1.4 10^3/uL (1.5-5.0); LYMPH % 15.2 % (24.0-44.0); MEAN CORPUSCULAR HEMOGLOBIN 30.7 pg (27.0-33.0); MEAN CORPUSCULAR HGB CONC 33.7 g/dl (32.0-36.5); MEAN CORPUSCULAR VOLUME 91.1 fl (80.0-96.0); MONO # 0.8 10^3/uL (0.0-0.8); MONO % 9.2 % (0.0-5.0); NEUTROPHILS # 6.3 10^3/uL (1.5-8.5); NEUTROPHILS % 71.5 % (36.0-66.0); PLATELET COUNT, AUTOMATED 185 10^3/uL (150-450); RED BLOOD COUNT 5.08 10^6/uL (4.30-6.10); WHITE BLOOD COUNT 8.9 10^3/uL (4.0-10.0)
[2019-07-27 08:00] VITALS: BP 125/85
[2019-07-27 08:22] LABS: ALBUMIN 3.3 GM/DL (3.2-5.2); ALT/SGPT 26 U/L (12-78); BILIRUBIN,TOTAL 1.1 MG/DL (0.2-1.0); BLOOD UREA NITROGEN 20 MG/DL (7-18); CALCIUM LEVEL 8.7 MG/DL (8.8-10.2); CARBON DIOXIDE LEVEL 24 MEQ/L (21-32); CHLORIDE LEVEL 106 MEQ/L (98-107); CREATININE FOR GFR 1.27 MG/DL (0.70-1.30); GLOMERULAR FILTRATION RATE > 60.0 (>49); GLUCOSE, FASTING 88 MG/DL (70-100); POTASSIUM SERUM 4.4 MEQ/L (3.5-5.1); SODIUM LEVEL 137 MEQ/L (136-145)
--- NOTE | 2019-07-27 08:28 | REP ---
MRI brain: 07/26/2019. Indication: Stroke. Comparison: CT brain completed earlier the same day. Technique: Multiplanar short and long TR sequences of the brain were obtained without IV Gadolinium. Findings: Restricted diffusion and abnormal signal correspond to the right frontoparietal infarction recently described. Gradient imaging demonstrates areas of hemorrhage. There is no significant mass effect or shift. There is no hydrocephalus. There are a few additional areas of elevated CT signal throughout the cerebral hemisphere white matter most consistent with chronic small vessel disease. Impression: Hemorrhagic right MCA evolving infarction without significant mass effect. Electronically Signed by Pablo Vick DO 07/27/2019 08:20 A
[2019-07-27] MEDS: DOCUSATE SODIUM 100 MG CAP PO SCH ×2 (08:34→20:42)
[2019-07-27] MEDS: ATORVASTATIN 20 MG TAB PO SCH (08:35)
[2019-07-27] MEDS: ASPIRIN 81 MG ENTERIC TAB PO SCH (08:35)
[2019-07-27] MEDS: CLOPIDOGREL 75 MG TAB PO SCH (08:35)
[2019-07-27] MEDS: PANTOPRAZOLE 40MG TAB (PROTONIX) PO SCH (08:36)
[2019-07-27] MEDS: LISINOPRIL 5 MG TAB PO SCH (08:36)
[2019-07-27] MEDS: LORATADINE 10 MG TAB PO SCH (08:36)
[2019-07-27] MEDS: ATENOLOL 25 MG TAB PO SCH (08:36)
--- NOTE | 2019-07-27 08:53 | CR ---
DATE OF CONSULTATION: 07/26/2019 REQUESTING PROVIDER: Dr. Jann Serrano HISTORY OF PRESENT ILLNESS: Isaías Mckeon is a resident of [facility] ([facility]) who is at baseline nonverbal, but understands language and was independent in regards to ambulation. The patient was found to have significant changes in his cognition. He was incoherent. He was unable to move the left side of his body well. These particular symptoms did improve during the hospital stay. Initial head CT was negative. Followup head CT the following day showed right middle cerebral artery (MCA) distribution ischemic stroke. The patient was on aspirin 81 mg daily. The primary care team added Plavix 75 mg daily to his current regimen. He likely can stay either on Plavix alone or aspirin 325 mg daily unless he has high-grade intracranial stenosis at this time. He is on a statin therapy at this point. He is on telemetry monitoring. He is able to move his left arm and left leg, though not as well as he can on the right side. He has always had some degree of spasticity it seems and is hyperreflexic in all four extremities. He denies any pain or headache. He is able to follow most commands. He has some difficulty following commands and how to show full strength in his lower extremities suggesting possible weakness. REVIEW OF SYSTEMS: 14-point review of systems obtained and is negative except as per history of present illness (HPI). PAST MEDICAL HISTORY: Hypertension, mental retardation, dementia Alzheimer's, allergic rhinitis, hyperlipidemia, gastroesophageal reflux disease (GERD), chronic kidney disease (CKD) stage III. ALLERGIES: NO KNOWN DRUG ALLERGIES. SOCIAL HISTORY: The patient does not use any tobacco, alcohol or illicit drugs. FAMILY HISTORY: Noncontributory. HOME MEDICATIONS: - aspirin 81 mg by mouth daily - atenolol 25 mg by mouth daily - atorvastatin 20 mg by mouth at bedtime - docusate 100 mg by mouth twice a day - vitamin D two 50,000 international units by mouth every 2 weeks - lisinopril 5 mg by mouth daily - loratadine 10 mg by mouth daily - omeprazole 40 mg by mouth daily - ranitidine 150 mg by mouth twice a day - trazodone 100 mg by mouth at bedtime - fluticasone propionate 16 grams spray suspension daily as needed congestion he. PHYSICAL EXAMINATION: Blood pressure is 133/91, pulse rate 68, respiratory rate is 18, temperature is 98.1 degrees Fahrenheit and oxygenation is 97% on room air. The patient is oriented to his name. He cannot speak verbally though he mouths some noises. He is able to follow most commands. Pupils appear to be round and reactive. Tongue appears to be midline. Face symmetry seems to be preserved. Sensation V1, V2 and V3 seems to be intact to light touch. Hearing subjectively equal to finger rub. There does appear to be a pronator drift of the left upper extremity. There does appear to be weakness in the left arm triceps and biceps. There does appear to be some weakness in the lower extremities at the tibialis anterior. Quadriceps appear to be 5/5, iliopsoas appear to be weak, although the patient has some difficulty in following commands. Sensory is intact to light touch in all four extremities. Deep tendon reflexes are trace in the upper extremities, 3 at the patellas, and 2+ at the Achilles. Babinski signs are absent. Gait deferred. ASSESSMENT: 63-year-old male with baseline cognitive impairments presenting with sudden onset left upper extremity weakness along with altered mental status with CT findings of acute right MCA stroke. PLAN: Recommend either full-dose aspirin 325 mg daily or Plavix 75 mg daily by itself unless there is high-grade intracranial stenosis from which the patient would then benefit by being on dual antiplatelet therapy low-dose 81 mg aspirin in addition to Plavix 75 mg daily. Continue Lipitor 40 mg by mouth daily. Continue telemetry monitoring. Followup echocardiogram results. Followup of MR angiogram and MRI brain results. Obtain either carotid ultrasound or CT angio of the neck. Carotid ultrasound may be beneficial as the patient has baseline CKD. Physical therapy/occupational therapy (PT/OT) evaluations.
--- NOTE | 2019-07-27 08:57 | REP ---
MRA intracranial circulation: 07/27/2019. Indication: Stroke. Comparison: None. Technique: 3-D [id number] imaging of the intracranial circulation were performed with rotational imaging provided. Findings: There is no intracranial high-grade stenosis, vessel occlusion. New, aneurysm or AVM. Impression: No intracranial high-grade stenosis or vessel occlusion. Electronically Signed by Pablo Vick DO 07/27/2019 08:49 A
--- NOTE | 2019-07-27 09:01 | IPNPDOC ---
Subjective Date Seen The patient was seen on 07/27/19. Subjective Chief Complaint/HPI stroke Events since last encounter Repeat CT demonstrated evolving RIGHT MCA infarction. MRI brain proves positive for hemorrhage in right MCA. patient c/o abdominal discomfort today. Denies [place]. COntinus with LUE and LLE weakness, slowly improving. s/p speech eval and recommendations in patient record. ENT: Denies: Head Aches Pulmonary: Denies: Dyspnea, Cough Cardiovascular: Denies: Chest Pain, Palpitations Gastrointestinal: Reports: Abdominal Pain, Constipation (chronic); Denies: Nausea, Vomiting, Diarrhea Objective Physical Examination General Exam: Positive: Alert, Cooperative, No Acute Distress Neck Exam: Positive: Supple; Negative: JVD, thyromegaly Chest Exam: Positive: Clear to auscultation, Normal air movement Telemetry: Positive: No significant arrhythmia Abdomen Exam: Positive: Normal bowel sounds, Soft; Negative: Tenderness, Hepatospenomegaly Extremity Exam: Positive: Normal pulses; Negative: Clubbing, Cyanosis, Edema Neuro Exam: Positive: Other (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 yes/no with shaking hiead) Assessment /Plan Problems (1) Acute right MCA stroke Problem Text: Stable neuro exam, plan repeat CT head in AM 07/27 asa 81 and clopid held (last dose both 07/27 835), case dw Dr. Mathur-+ leve 500 BID sz px and baclofen 5 TID for muscle spasticity 07/27 CT brain: expected evolution, no new hemorrhage nor mass effect 07/26 MRI brain: Restricted diffusion and abnormal signal correspond to the right frontoparietal infarction recently described. Gradient imaging demonstrates areas of hemorrhage. There is no significant mass effect or shift. There is no hydrocephalus. There are a few additional areas of elevated CT signal throughout the cerebral hemisphere white matter most consistent with chronic small vessel disease. 07/27 MRA brain s high grade stenosis 07/26 CT brain MCA CVA s hemorrhage 07/27 ST: PO level 2 solids * Measure no s/sx aspiration, no pocketing, no anterior spill, RN says no drool * Level of Assistance Moderate Assist * Level Of Assistance Comment cut food in small bites & gave physical cue to swallow one bite @ a time plan SNF 07/29 if stable plan restart clopid 3-4W if stable CT prior to restart (2) HTN (hypertension) Status: Chronic Response to Treatment: Stable Problem Text: Stable on HD lisin 5, aten 25 (3) Hyperlipidemia Status: Chronic Response to Treatment: Stable Problem Text: HD atorva 20 increased to HI 40 (4) GERD (gastroesophageal reflux disease) Status: Chronic Problem Text: Stable on panto 40 (5) Right hemisphere, cerebral infarction Status: Chronic Problem Text: prior R CR lacunar CVAs (for which px was on asa 81 on admission) (6) CKD (chronic kidney disease), stage III Status: Chronic Response to Treatment: Stable Problem Text: at baseline cr ~1.3 (7) Physical deconditioning Status: Acute Response to Treatment: Stable, Improving Problem Text: plan SNF when stable before return to half-way Plan/VTE VTE Prophylaxis Ordered?: Yes VTE Exclusion Mechanical Proph: Other VS, I&O, 24H, Fishbone Vital Signs/I&O Vital Signs Date Time Temp Pulse Resp B/P (MAP) Pulse Ox O2 Delivery O2 Flow Rate FiO2 07/27/19 08:36 125/85 07/27/19 08:36 73 07/27/19 08:00 98.5 18 97 Room Air I&O- Last 24 Hours up to 6 AM 07/27/19 06:00 Intake Total 720 ml Output Total 1100 ml Balance -380 ml Laboratory Data 24H LABS Laboratory Tests 2 07/27/19 07:31: Immature Granulocyte % (Auto) 0.2, Neutrophils (%) (Auto) 71.5H, Lymphocytes (%) (Auto) 15.2L, Monocytes (%) (Auto) 9.2H, Eosinophils (%) (Auto) 3.4H, Basophils (%) (Auto) 0.5, Neutrophils # (Auto) 6.3, Lymphocytes # (Auto) 1.4L, Monocytes # (Auto) 0.8, Eosinophils # (Auto) 0.3, Basophils # (Auto) 0.0, Nucleated Red Blood Cells % (auto) 0.0, Anion Gap 7L, Glomerular Filtration Rate > 60.0, Calcium Level 8.7L, Total Bilirubin 1.1H, Aspartate Amino Transf (AST/SGOT) 25, Alanine Aminotransferase (ALT/SGPT) 26, Alkaline Phosphatase 93, Total Protein 7.0, Albumin 3.3, Albumin/Globulin Ratio 0.89L CBC/BMP Laboratory Tests 07/27/19 07:31 Mariella Hodge Jul 27, 2019 09:01 See Booth M.D. Jul 27, 2019 17:44
--- NOTE | 2019-07-27 11:30 | REP ---
CT brain: 07/27/2019. Indication: Stroke. Comparison: CT MRI studies completed yesterday. Technique: Unenhanced axial CT images of the brain were obtained from skull base to vertex. Findings: The hemorrhagic right MCA infarction continues to evolve without significant new hemorrhage or worsening mass effect. No new cortical infarctions are detected. There is no hydrocephalus. Impression: Evolving hemorrhagic right MCA infarction without new hemorrhage or worsening mass effect. Electronically Signed by Pablo Vick DO 07/27/2019 11:22 A
[2019-07-27 11:36] VITALS: BP 132/90
[2019-07-27] MEDS: SIMETHICONE 80 MG CHEW TAB PO SCH ×3 (12:13→20:42)
[2019-07-27 16:00] VITALS: BP 138/89
[2019-07-27 20:00] VITALS: BP 136/82
[2019-07-27] MEDS: traZODone 100 MG TAB PO SCH (20:42)
[2019-07-27] MEDS: levETIRAcetam 250MG TABLET (KEPPRA) PO SCH (20:42)
[2019-07-27] MEDS: BACLOFEN 5MG PER 1/2 TABLET PO SCH (20:42)
[2019-07-28] VITALS: BP 145/69
[2019-07-28 04:00] VITALS: BP 116/74
[2019-07-28] MEDS: ACETAMINOPHEN TAB 650MG DOSE (2X325MG) PO PRN ×2 (05:07→08:41)
[2019-07-28 06:01] LABS: BASO % 0.4 % (0.0-1.0); EOS # 0.3 10^3/uL (0.0-0.5); EOS % 3.6 % (0.0-3.0); HEMATOCRIT 43.3 % (42.0-52.0); LYMPH # 1.8 10^3/uL (1.5-5.0); LYMPH % 19.7 % (24.0-44.0); MEAN CORPUSCULAR HEMOGLOBIN 31.2 pg (27.0-33.0); MEAN CORPUSCULAR HGB CONC 34.6 g/dl (32.0-36.5); PLATELET COUNT, AUTOMATED 186 10^3/uL (150-450); RED BLOOD COUNT 4.81 10^6/uL (4.30-6.10); WHITE BLOOD COUNT 9.2 10^3/uL (4.0-10.0)
--- NOTE | 2019-07-28 06:15 | REPVR ---
PROCEDURE INFORMATION: Exam: CT Head Without Contrast Exam date and time: 07/28/2019 6:00 AM Age: 63 years old Clinical history: Other: F/u ich; Additional info: Ich follow up study TECHNIQUE: Imaging protocol: Computed tomography of the head without contrast. Radiation optimization: All CT scans at this facility use at least one of these dose optimization techniques: automated exposure control; mA and/or kV adjustment per patient size (includes targeted exams where dose is matched to clinical indication); or iterative reconstruction. COMPARISON: CT Head without contrast 07/27/2019 11:02 AM FINDINGS: Brain: Again noted is an area of vasogenic edema versus cytotoxic edema with gyriform luxury perfusion phenomenon in the right frontal lobe. The finding is located in the M3 and M5 right middle cerebral artery territory. No new mass, hemorrhage, or shift compared to the prior. Ventricles: No ventriculomegaly. Bones/joints: No acute fracture. Sinuses: No acute process. Mastoid air cells: Unremarkable as visualized. No mastoid effusion. Soft tissues: No acute findings. IMPRESSION: There appears to be a stable subacute infarct with luxury perfusion phenomenon in the left MCA distribution. No access to the prior confirmatory MRI imaging is available. Electronically signed by: Jonathan Romero On 07/28/2019 06:14:50 AM
[2019-07-28 06:27] LABS: ALBUMIN 3.1 GM/DL (3.2-5.2); BILIRUBIN,TOTAL 1.1 MG/DL (0.2-1.0); CALCIUM LEVEL 8.6 MG/DL (8.8-10.2); CREATININE FOR GFR 1.29 MG/DL (0.70-1.30); GLOMERULAR FILTRATION RATE 59.5 (>49); POTASSIUM SERUM 3.7 MEQ/L (3.5-5.1)
[2019-07-28] MEDS: SLF 3 ML SYR IV SCH ×3 (06:38→21:04)
[2019-07-28 08:00] VITALS: BP 131/88
[2019-07-28] MEDS: levETIRAcetam 250MG TABLET (KEPPRA) PO SCH ×2 (08:40→20:03)
[2019-07-28] MEDS: ATENOLOL 25 MG TAB PO SCH (08:41)
[2019-07-28] MEDS: SIMETHICONE 80 MG CHEW TAB PO SCH ×4 (08:41→20:03)
[2019-07-28] MEDS: ATORVASTATIN 20 MG TAB PO SCH (08:41)
[2019-07-28] MEDS: LORATADINE 10 MG TAB PO SCH (08:41)
[2019-07-28] MEDS: LISINOPRIL 5 MG TAB PO SCH (08:41)
[2019-07-28] MEDS: BACLOFEN 5MG PER 1/2 TABLET PO SCH ×3 (08:41→20:03)
[2019-07-28] MEDS: PANTOPRAZOLE 40MG TAB (PROTONIX) PO SCH (08:42)
[2019-07-28] MEDS: DOCUSATE SODIUM 100 MG CAP PO SCH ×2 (08:42→20:03)
[2019-07-28] MEDS ORDERED: VARIBAR NECTAR 40% w/v 240ML SUSP BTL As Ordered ONE (11:36)
[2019-07-28] MEDS ORDERED: E-Z-PAQUE 96% w/w SUSP 176GM BTL As Ordered ONE (11:36)
[2019-07-28] MEDS ORDERED: VARIBAR PUDDING 40% w/v 230ML TUBE As Ordered ONE (11:36)
[2019-07-28] MEDS ORDERED: BARIUM SULFATE 700 MG TABLET (E-Z-DISK) As Ordered ONE (11:36)
[2019-07-28 12:00] VITALS: BP 141/81
--- NOTE | 2019-07-28 15:32 | REP ---
Examination Requested: Cookie Swallow Reason For Exam: Food sticking with swallowing The procedure was performed by ANTON Awad, under the direct supervision of Dr. Barrios. The procedure was performed with Margie Laird from speech pathology present. 5 ml aliquots of thin, pudding, mixed fruit, soft food, and hard food consistency barium was administered. No penetration or aspiration was visualized throughout the course of the exam. The detailed report of this examination will be provided by speech pathology. 1.6 minutes of fluoroscopy time was utilized for this procedure. Reviewed by ANTON Walsh 07/28/2019 02:08 P Electronically Signed by Catalino Barrios MD 07/28/2019 03:23 P
[2019-07-28 20:00] VITALS: BP 122/86
[2019-07-28] MEDS: traZODone 100 MG TAB PO SCH (20:03)
[2019-07-29 04:00] VITALS: BP 134/84
[2019-07-29] MEDS: ACETAMINOPHEN TAB 650MG DOSE (2X325MG) PO PRN (04:43)
[2019-07-29] MEDS: SLF 3 ML SYR IV SCH (05:46)
[2019-07-29 08:00] VITALS: BP 118/82
[2019-07-29] MEDS: DOCUSATE SODIUM 100 MG CAP PO SCH (08:22)
[2019-07-29] MEDS: PANTOPRAZOLE 40MG TAB (PROTONIX) PO SCH (08:23)
[2019-07-29] MEDS: LORATADINE 10 MG TAB PO SCH (08:23)
[2019-07-29] MEDS: levETIRAcetam 250MG TABLET (KEPPRA) PO SCH (08:23)
[2019-07-29] MEDS: BACLOFEN 5MG PER 1/2 TABLET PO SCH (08:23)
[2019-07-29] MEDS: SIMETHICONE 80 MG CHEW TAB PO SCH (08:23)
[2019-07-29] MEDS: ATORVASTATIN 20 MG TAB PO SCH (08:23)
[2019-07-29 08:24] VITALS: BP 118/82
[2019-07-29] MEDS: LISINOPRIL 5 MG TAB PO SCH (08:24)
[2019-07-29] MEDS: ATENOLOL 25 MG TAB PO SCH (08:24)
[2019-07-29] MEDS ORDERED: BACL10TA2 PO (10:52)
[2019-07-29] MEDS ORDERED: ATOR1TAB21 PO (10:52)
[2019-07-29] MEDS ORDERED: KEPP250T5 PO (10:52)
[2019-07-29] MEDS ORDERED: SIME80TA PO (10:52)
[2019-07-29] MEDS ORDERED: PEG1POW PO (10:52)
--- NOTE | 2019-07-29 21:39 | DSES ---
DATE OF ADMISSION: 07/25/2019 DATE OF DISCHARGE: 07/29/2019 ADDENDUM: He was made [facility] facility (SNF) 07/28/2019 and he will be discharged to [facility] on 07/29/2019. His diet is mechanical soft and he has undergone a swallow evaluation and the diet was adjusted by speech therapy. Activity is with a walker. MEDICATIONS: - atorvastatin 40 mg daily - baclofen 5 mg three times a day - Keppra 500 mg twice a day - MiraLax daily as needed - simethicone 120 mg four times day - atenolol 25 mg daily - Colace 100 mg twice a day - vitamin D 50,000 units every two weeks - fluticasone one spray per nostril daily as needed for congestion - lisinopril 5 mg daily - loratadine 10 mg daily - omeprazole 40 mg daily - trazodone 100 mg at bedtime His aspirin is held due to the hemorrhagic cerebrovascular accident (CVA). His atorvastatin dose was increased to 40 due to his stroke and ranitidine has been held due to recalls. Discharge diagnoses were dictated the time of alternate level of care (ALC) status and have not changed.
== END 2019-07-29 13:05 | DRG 66 ==
LOC: M ED 09:29 → EDBD 09:29 → M ED INP 12:08 → M PCU 07-26 01:14
PROVIDERS: ADMIT Internal Medicine; ATTEND Family Medicine
DX: I63.9 Cerebral infarction, unspecified (principal); G30.9 Alzheimer's disease, unspecified; E78.5 Hyperlipidemia, unspecified; I12.9 Hypertensive chronic kidney disease with stage 1 through stage 4 chronic kidney disease, or unspecified chronic kidney disease; K21.9 Gastro-esophageal reflux disease without esophagitis; N18.3 Chronic kidney disease, stage 3 (moderate); F02.80 Dementia in other diseases classified elsewhere, unspecified severity, without behavioral disturbance, psychotic disturbance, mood disturbance, and anxiety; F70 Mild intellectual disabilities; Z79.82 Long term (current) use of aspirin; Z79.899 Other long term (current) drug therapy

== ENCOUNTER → 2019-08-13 | Outpatient (REF) ==
[~2019-08-13] MED LIST changes: +ATEN25TA PO; +ATOR1TAB21 PO; +BACL10TA2 PO; +FLUTISP NARES; +KEPP250T5 PO; +OMEP-221 PO; +PEG1POW PO; +SIME80TA PO; +VITA500045 PO
[2019-08-13 14:03] LABS: HEMATOCRIT 46.7 % (42.0-52.0); HEMOGLOBIN 15.3 g/dl (13.5-17.5); MEAN CORPUSCULAR HEMOGLOBIN 30.7 pg (27.0-33.0); MEAN CORPUSCULAR HGB CONC 32.8 g/dl (32.0-36.5); MEAN CORPUSCULAR VOLUME 93.6 fl (80.0-96.0); PLATELET COUNT, AUTOMATED 227 10^3/uL (150-450); RED BLOOD COUNT 4.99 10^6/uL (4.30-6.10); WHITE BLOOD COUNT 7.1 10^3/uL (4.0-10.0)
[2019-08-13 14:27] LABS: BLOOD UREA NITROGEN 16 MG/DL (7-18); CALCIUM LEVEL 9.1 MG/DL (8.8-10.2); CARBON DIOXIDE LEVEL 29 MEQ/L (21-32); CHLORIDE LEVEL 106 MEQ/L (98-107); CHOLESTEROL LEVEL 114 MG/DL (<200); CHOLESTEROL RISK RATIO 2.651 (<5); CREATININE FOR GFR 1.22 MG/DL (0.70-1.30); GLOMERULAR FILTRATION RATE > 60.0 (>49); GLUCOSE, FASTING 85 MG/DL (70-100); HDL CHOLESTEROL 43 MG/DL (>40); LDL CHOLESTEROL 35 MG/DL (<100); NON-HDL-C 71 MG/DL; POTASSIUM SERUM 4.3 MEQ/L (3.5-5.1); SODIUM LEVEL 139 MEQ/L (136-145); TRIGLYCERIDES LEVEL 178 MG/DL (<150)
== END ==
LOC: SKLAB5 10:18
PROVIDERS: ATTEND Family Medicine
DX: E78.5 Hyperlipidemia, unspecified (principal); N18.9 Chronic kidney disease, unspecified

== ENCOUNTER → 2019-10-01 | Outpatient (CLI) | payer MEDICARE, MEDICAID ==
[~2019-10-01] MED LIST changes: -TRAZ-163 PO; +TRAZ-257 PO
[2019-10-01 09:13] LABS: BASO % 0.7 % (0.0-1.0); EOS # 0.2 10^3/uL (0.0-0.5); EOS % 3.7 % (0.0-3.0); HEMATOCRIT 46.9 % (42.0-52.0); HEMOGLOBIN 15.3 g/dl (13.5-17.5); LYMPH # 0.9 10^3/uL (1.5-5.0); LYMPH % 16.1 % (24.0-44.0); MEAN CORPUSCULAR HEMOGLOBIN 29.9 pg (27.0-33.0); MEAN CORPUSCULAR HGB CONC 32.6 g/dl (32.0-36.5); MEAN CORPUSCULAR VOLUME 91.6 fl (80.0-96.0); MONO # 0.5 10^3/uL (0.0-0.8); MONO % 9.4 % (0.0-5.0); NEUTROPHILS % 69.7 % (36.0-66.0); PLATELET COUNT, AUTOMATED 215 10^3/uL (150-450); RED BLOOD COUNT 5.12 10^6/uL (4.30-6.10); WHITE BLOOD COUNT 5.7 10^3/uL (4.0-10.0)
[2019-10-01 09:50] LABS: ALBUMIN 3.6 GM/DL (3.2-5.2); ALT/SGPT 34 U/L (12-78); BILIRUBIN,TOTAL 0.4 MG/DL (0.2-1.0); BLOOD UREA NITROGEN 21 MG/DL (7-18); CALCIUM LEVEL 8.2 MG/DL (8.8-10.2); CARBON DIOXIDE LEVEL 26 MEQ/L (21-32); CHLORIDE LEVEL 108 MEQ/L (98-107); CHOLESTEROL LEVEL 115 MG/DL (<200); CHOLESTEROL RISK RATIO 3.026 (<5); CPK CREATINE PHOSPHOKINASE 108 U/L (39-308); CREATININE FOR GFR 1.23 MG/DL (0.70-1.30); FREE T4 1.09 NG/DL (0.76-1.46); GLOMERULAR FILTRATION RATE > 60.0 (>49); GLUCOSE, FASTING 89 MG/DL (70-100); HDL CHOLESTEROL 38 MG/DL (>40); LDL CHOLESTEROL 60 MG/DL (<100); NON-HDL-C 77 MG/DL; POTASSIUM SERUM 4.3 MEQ/L (3.5-5.1); SODIUM LEVEL 140 MEQ/L (136-145); TOTAL PROTEIN 7.2 GM/DL (6.4-8.2); TRIGLYCERIDES LEVEL 86 MG/DL (<150)
== END ==
LOC: M WUC 08:13
PROVIDERS: ATTEND Family Medicine
DX: E78.5 Hyperlipidemia, unspecified (principal); I10 Essential (primary) hypertension

== ENCOUNTER → 2020-06-22 | Outpatient (CLI) | payer MEDICARE, MEDICAID ==
[~2020-06-22] MED LIST changes: -ASPI81TA85 PO; +ASPI81TA86 PO
[2020-06-22 16:13] LABS: HEMATOCRIT 46.9 % (42.0-52.0); HEMOGLOBIN 15.3 g/dl (13.5-17.5); MEAN CORPUSCULAR HEMOGLOBIN 29.1 pg (27.0-33.0); MEAN CORPUSCULAR HGB CONC 32.6 g/dl (32.0-36.5); MEAN CORPUSCULAR VOLUME 89.2 fl (80.0-96.0); PLATELET COUNT, AUTOMATED 223 10^3/uL (150-450); RED BLOOD COUNT 5.26 10^6/uL (4.30-6.10); WHITE BLOOD COUNT 7.3 10^3/uL (4.0-10.0)
[2020-06-22 16:22] LABS: ALBUMIN 3.7 GM/DL (3.2-5.2); ALT/SGPT 28 U/L (12-78); BILIRUBIN,TOTAL 0.5 MG/DL (0.2-1.0); BLOOD UREA NITROGEN 16 MG/DL (7-18); CALCIUM LEVEL 9.1 MG/DL (8.8-10.2); CARBON DIOXIDE LEVEL 30 MEQ/L (21-32); CHLORIDE LEVEL 105 MEQ/L (98-107); CHOLESTEROL LEVEL 121 MG/DL (<200); CHOLESTEROL RISK RATIO 2.688 (<5); CPK CREATINE PHOSPHOKINASE 186 U/L (39-308); CREATININE FOR GFR 1.19 MG/DL (0.70-1.30); GLOMERULAR FILTRATION RATE > 60.0 (>49); GLUCOSE, FASTING 83 MG/DL (70-100); HDL CHOLESTEROL 45 MG/DL (>40); LDL CHOLESTEROL 59 MG/DL (<100); NON-HDL-C 76 MG/DL; POTASSIUM SERUM 4.4 MEQ/L (3.5-5.1); SODIUM LEVEL 139 MEQ/L (136-145); TOTAL PROTEIN 7.4 GM/DL (6.4-8.2); TRIGLYCERIDES LEVEL 85 MG/DL (<150)
[2020-06-22 17:15] LABS: HEMOGLOBIN A1c 5.5 %; TOTAL 25(OH) VITAMIN D 63.2 NG/ML (30.0-100.0)
== END ==
LOC: M WUC 11:02
PROVIDERS: ATTEND Family Medicine
DX: R73.02 Impaired glucose tolerance (oral) (principal); E55.9 Vitamin D deficiency, unspecified; Z12.5 Encounter for screening for malignant neoplasm of prostate; Z79.899 Other long term (current) drug therapy
CPT/HCPCS: 36415; 80053; 80061; 82306; 82550; 83036; 83525; 83970; 85027; 85046; G0103

== ENCOUNTER → 2021-02-01 | Outpatient (CLI) | payer MEDICARE, MEDICAID ==
[~2021-02-01] MED LIST changes: -LISI-542 PO; +LISI-898 PO; -PEG1POW PO; +POLY17PO18 PO; +SIME80CH5 PO; -SIME80TA PO
[2021-02-01 11:04] LABS: BLOOD UREA NITROGEN 20 MG/DL (7-18); CREATININE FOR GFR 1.12 MG/DL (0.70-1.30); GLUCOSE, FASTING 89 MG/DL (70-100)
[2021-02-01 11:05] LABS: ALBUMIN 3.6 GM/DL (3.2-5.2); ALT/SGPT 23 U/L (12-78); BILIRUBIN,TOTAL 0.4 MG/DL (0.2-1.0); CALCIUM LEVEL 8.6 MG/DL (8.8-10.2); CARBON DIOXIDE LEVEL 27 MEQ/L (21-32); CHLORIDE LEVEL 108 MEQ/L (98-107); FREE T4 0.96 NG/DL (0.76-1.46); GLOMERULAR FILTRATION RATE > 60.0 (>49); POTASSIUM SERUM 4.4 MEQ/L (3.5-5.1); SODIUM LEVEL 141 MEQ/L (136-145)
[2021-02-01 11:40] LABS: HEMOGLOBIN A1c 5.1 %
== END ==
LOC: M WUC 08:20
PROVIDERS: ATTEND Family Medicine
DX: R73.02 Impaired glucose tolerance (oral) (principal); I10 Essential (primary) hypertension; Z12.5 Encounter for screening for malignant neoplasm of prostate; R63.4 Abnormal weight loss; Z79.899 Other long term (current) drug therapy
CPT/HCPCS: 36415; 80053; 82306; 83036; 83970; 84439; 84443; 85652; 86140; G0103

== ENCOUNTER → 2021-07-02 | Outpatient (CLI) | payer MEDICARE, MEDICAID ==
[2021-07-02 10:37] LABS: BASO # 0.1 10^3/uL (0.0-0.2); BASO % 0.7 % (0.0-1.0); EOS # 0.3 10^3/uL (0.0-0.5); EOS % 3.6 % (0.0-3.0); HEMATOCRIT 46.3 % (42.0-52.0); HEMOGLOBIN 15.3 g/dl (13.5-17.5); LYMPH # 1.4 10^3/uL (1.5-5.0); LYMPH % 19.8 % (24.0-44.0); MEAN CORPUSCULAR HEMOGLOBIN 30.1 pg (27.0-33.0); MONO # 0.6 10^3/uL (0.0-0.8); NEUTROPHILS # 4.8 10^3/uL (1.5-8.5); NEUTROPHILS % 67.8 % (36.0-66.0); PLATELET COUNT, AUTOMATED 219 10^3/uL (150-450); RED BLOOD COUNT 5.09 10^6/uL (4.30-6.10); WHITE BLOOD COUNT 7.1 10^3/uL (4.0-10.0)
[2021-07-02 10:56] LABS: HEMOGLOBIN A1c 5.3 %
[2021-07-02 11:33] LABS: ALBUMIN 3.5 GM/DL (3.2-5.2); ALT/SGPT 27 U/L (12-78); BILIRUBIN,TOTAL 0.4 MG/DL (0.2-1.0); BLOOD UREA NITROGEN 18 MG/DL (7-18); CALCIUM LEVEL 8.4 MG/DL (8.8-10.2); CARBON DIOXIDE LEVEL 29 MEQ/L (21-32); CHLORIDE LEVEL 110 MEQ/L (98-107); CHOLESTEROL LEVEL 116 MG/DL (<200); CHOLESTEROL RISK RATIO 2.521 (<5); CREATININE FOR GFR 1.27 MG/DL (0.70-1.30); FERRITIN 68 NG/ML (26-388); GLOMERULAR FILTRATION RATE > 60.0 (>49); GLUCOSE, FASTING 92 MG/DL (70-100); HDL CHOLESTEROL 46 MG/DL (>40); LDL CHOLESTEROL 59 MG/DL (<100); NON-HDL-C 70 MG/DL; POTASSIUM SERUM 4.2 MEQ/L (3.5-5.1); SODIUM LEVEL 142 MEQ/L (136-145); TOTAL PROTEIN 7.1 GM/DL (6.4-8.2); TRIGLYCERIDES LEVEL 57 MG/DL (<150)
== END ==
LOC: M WUC 08:48
PROVIDERS: ATTEND Family Medicine
DX: R73.02 Impaired glucose tolerance (oral) (principal); E78.5 Hyperlipidemia, unspecified; I10 Essential (primary) hypertension

== ENCOUNTER → 2021-10-23 | Outpatient (CLI) | payer MEDICARE, MEDICAID ==
[~2021-10-23] MED LIST changes: -LISI-898 PO; +LISI5TAB11 PO; -OMEP-221 PO; +OMEP40CA5 PO
[2021-10-23 11:19] LABS: BASO # 0.1 10^3/uL (0.0-0.2); BASO % 0.9 % (0.0-1.0); EOS # 0.3 10^3/uL (0.0-0.5); HEMATOCRIT 44.9 % (42.0-52.0); LYMPH # 1.4 10^3/uL (1.5-5.0); MEAN CORPUSCULAR HGB CONC 33.4 g/dl (32.0-36.5); MEAN CORPUSCULAR VOLUME 89.8 fl (80.0-96.0); MONO # 0.6 10^3/uL (0.0-0.8); MONO % 8.9 % (2.0-8.0); NEUTROPHILS # 4.2 10^3/uL (1.5-8.5); NEUTROPHILS % 63.9 % (36.0-66.0); PLATELET COUNT, AUTOMATED 202 10^3/uL (150-450); WHITE BLOOD COUNT 6.6 10^3/uL (4.0-10.0)
[2021-10-23 11:52] LABS: ALBUMIN 3.7 GM/DL (3.2-5.2); ALT/SGPT 22 U/L (12-78); BILIRUBIN,TOTAL 0.5 MG/DL (0.2-1.0); BLOOD UREA NITROGEN 24 MG/DL (7-18); CALCIUM LEVEL 8.6 MG/DL (8.8-10.2); CARBON DIOXIDE LEVEL 28 MEQ/L (21-32); CHLORIDE LEVEL 107 MEQ/L (98-107); CREATININE FOR GFR 1.18 MG/DL (0.70-1.30); FERRITIN 76 NG/ML (26-388); GLOMERULAR FILTRATION RATE > 60.0 (>49); GLUCOSE, FASTING 75 MG/DL (70-100); NT-PRO BNP 92 PG/ML (<125); POTASSIUM SERUM 4.4 MEQ/L (3.5-5.1); SODIUM LEVEL 141 MEQ/L (136-145); TOTAL PROTEIN 6.9 GM/DL (6.4-8.2)
[2021-10-23 11:56] LABS: PTH INTACT 52.2 PG/ML (18.5-88.0); TOTAL 25(OH) VITAMIN D 73.1 NG/ML (30.0-100.0)
== END ==
LOC: M WUC 08:41
PROVIDERS: ATTEND Family Medicine
DX: I12.9 Hypertensive chronic kidney disease with stage 1 through stage 4 chronic kidney disease, or unspecified chronic kidney disease (principal); N18.30 Chronic kidney disease, stage 3 unspecified

== ENCOUNTER 2021-10-28 07:34 | Inpatient (IN) | payer MEDICARE, MEDICAID ==
[~2021-10-28] VITALS: Ht 154.9 cm; Wt 56.9 kg
[2021-10-28 08:08] LABS: BASO # 0.1 10^3/uL (0.0-0.2); BASO % 0.8 % (0.0-1.0); EOS # 0.3 10^3/uL (0.0-0.5); EOS % 3.9 % (0.0-3.0); HEMATOCRIT 45.2 % (42.0-52.0); HEMOGLOBIN 15.2 g/dl (13.5-17.5); LYMPH # 1.8 10^3/uL (1.5-5.0); LYMPH % 23.4 % (24.0-44.0); MEAN CORPUSCULAR HEMOGLOBIN 30.1 pg (27.0-33.0); MEAN CORPUSCULAR HGB CONC 33.6 g/dl (32.0-36.5); MEAN CORPUSCULAR VOLUME 89.5 fl (80.0-96.0); MONO # 0.6 10^3/uL (0.0-0.8); MONO % 7.6 % (2.0-8.0); NEUTROPHILS # 4.9 10^3/uL (1.5-8.5); NEUTROPHILS % 63.9 % (36.0-66.0); PLATELET COUNT, AUTOMATED 194 10^3/uL (150-450); RED BLOOD COUNT 5.05 10^6/uL (4.30-6.10); WHITE BLOOD COUNT 7.7 10^3/uL (4.0-10.0)
[2021-10-28] MEDS ORDERED: UREA20CR4 TOP (08:39)
[2021-10-28] MEDS ORDERED: POLY1POW38 PO (08:39)
[2021-10-28] MEDS ORDERED: PLAV1TAB2 PO (08:39)
[2021-10-28] MEDS ORDERED: CETACRE3 TOP (08:39)
[2021-10-28] MEDS ORDERED: BACL5TAB2 PO (08:39)
[2021-10-28] MEDS ORDERED: FAMO40TA3 PO (08:39)
[2021-10-28] MEDS ORDERED: VITA500045 PO (08:39)
[2021-10-28] MEDS ORDERED: HOME MED LIST COMPLETE! XX SCH (08:40)
[2021-10-28 08:42] LABS: BLOOD UREA NITROGEN 17 MG/DL (7-18); CALCIUM LEVEL 8.5 MG/DL (8.8-10.2); CARBON DIOXIDE LEVEL 25 MEQ/L (21-32); CHLORIDE LEVEL 110 MEQ/L (98-107); CREATININE FOR GFR 1.23 MG/DL (0.70-1.30); GLOMERULAR FILTRATION RATE > 60.0 (>49); GLUCOSE, FASTING 104 MG/DL (70-100); MAGNESIUM LEVEL 2.1 MG/DL (1.8-2.4); POTASSIUM SERUM 4.6 MEQ/L (3.5-5.1); SODIUM LEVEL 141 MEQ/L (136-145)
[2021-10-28] MEDS ORDERED: ISOVUE-370 76% 100ML VIAL As Ordered ONE (09:14)
[2021-10-28 09:18] LABS: RSV AMPLIFICATION NEGATIVE (NEGATIVE)
[2021-10-28] MEDS ORDERED: NS 1,000 ML IV SCH (09:35)
[2021-10-28 10:37] LABS: INR 1.09; PROTHROMBIN TIME 14.5 SECONDS (12.7-14.5)
[2021-10-28 10:38] LABS: FIBRINOGEN 286 MG/DL (268-480); PARTIAL THROMBOPLASTIN TIME 27.5 SECONDS (25.9-37.0)
[2021-10-28 10:55] LABS: C REACTIVE PROTEIN QUANTITATIV < 0.30 MG/DL (0.00-0.30); FERRITIN 93 NG/ML (26-388); LDH LACTATE DEHYDROGENASE 175 U/L (87-241)
[2021-10-28] MEDS ORDERED: MIRALAX *UNIT DOSE* 17GM PACKET PO PRN (11:00)
[2021-10-28] MEDS ORDERED: ONDANSETRON 4MG/2ML VIAL IV PRN (11:00)
[2021-10-28] MEDS ORDERED: FLUTICASONE PROP 0.05% NASAL SPRAY 16 GM (FLONASE) NARES PRN (11:00)
[2021-10-28] MEDS ORDERED: FAMOTIDINE 20 MG TAB PO PRN (11:00)
[2021-10-28] MEDS: lisinopriL 5 MG TAB PO SCH (13:00)
[2021-10-28] MEDS: NS 1,000 ML IV SCH ×2 (13:00→21:41)
[2021-10-28] MEDS: atenoloL 25 MG TAB PO SCH (13:00)
[2021-10-28] MEDS: CLOPIDOGREL 75 MG TAB PO SCH (13:00)
[2021-10-28 13:54] LABS: D-DIMER QUANT < 270 ng/ml (<500)
[2021-10-28 16:31] VITALS: BP 136/91
[2021-10-28 19:53] VITALS: BP 134/79
[2021-10-28] MEDS ORDERED: ACETAMINOPHEN TAB 650MG DOSE (2X325MG) PO PRN (19:55)
[2021-10-28] MEDS: DOCUSATE SODIUM 100MG CAPSULE PO SCH (20:02)
[2021-10-28] MEDS ORDERED: traZODone 100 MG TAB PO SCH (21:00)
[2021-10-29 04:26] VITALS: BP 134/81
[2021-10-29 06:05] LABS: HEMATOCRIT 41.7 % (42.0-52.0); HEMOGLOBIN 14.2 g/dl (13.5-17.5); MEAN CORPUSCULAR HEMOGLOBIN 30.1 pg (27.0-33.0); MEAN CORPUSCULAR HGB CONC 34.1 g/dl (32.0-36.5); MEAN CORPUSCULAR VOLUME 88.5 fl (80.0-96.0); PLATELET COUNT, AUTOMATED 189 10^3/uL (150-450); RED BLOOD COUNT 4.71 10^6/uL (4.30-6.10); WHITE BLOOD COUNT 8.6 10^3/uL (4.0-10.0)
[2021-10-29 06:43] LABS: ALT/SGPT 21 U/L (12-78); BILIRUBIN,TOTAL 0.6 MG/DL (0.2-1.0); BLOOD UREA NITROGEN 10 MG/DL (7-18); CALCIUM LEVEL 8.2 MG/DL (8.8-10.2); CARBON DIOXIDE LEVEL 23 MEQ/L (21-32); CHLORIDE LEVEL 112 MEQ/L (98-107); CREATININE FOR GFR 0.97 MG/DL (0.70-1.30); GLOMERULAR FILTRATION RATE > 60.0 (>49); GLUCOSE, FASTING 86 MG/DL (70-100); POTASSIUM SERUM 3.8 MEQ/L (3.5-5.1); SODIUM LEVEL 141 MEQ/L (136-145); TOTAL PROTEIN 6.1 GM/DL (6.4-8.2)
[2021-10-29 07:37] VITALS: BP 128/87
[2021-10-29] MEDS: atenoloL 25 MG TAB PO SCH (07:37)
[2021-10-29] MEDS: DOCUSATE SODIUM 100MG CAPSULE PO SCH (07:37)
[2021-10-29] MEDS: lisinopriL 5 MG TAB PO SCH (07:37)
[2021-10-29] MEDS: CLOPIDOGREL 75 MG TAB PO SCH (07:37)
[2021-10-29] MEDS ORDERED: EPINEPHrine INJ 1 MG/ML 1ML AMP IM PRN (08:40)
[2021-10-29] MEDS ORDERED: ALBUTEROL SULFATE 2.5 MG/0.5 ML INH NEB SOLN INH PRN (08:40)
[2021-10-29] MEDS ORDERED: diphenhydrAMINE 50MG/ML VIAL (J1200) IV PRN (08:40)
[2021-10-29] MEDS ORDERED: ALBUTEROL 90 MCG/ACT 8GM HFA INHALER INH PRN (08:40)
[2021-10-29] MEDS ORDERED: methylPREDNISolone 125MG 2ML VIAL IV PRN (08:40)
[2021-10-29] MEDS ORDERED: LORATADINE 10 MG TAB PO SCH (09:00)
[2021-10-29] MEDS ORDERED: OMEPRAZOLE 20MG CAP PO SCH (09:00)
[2021-10-29] MEDS ORDERED: SOTROVIMAB 500 MG in NS 100 ML IV ONE (10:00)
[2021-10-29] MEDS ORDERED: NS 1,000 ML IV SCH (10:00)
== END 2021-10-29 13:50 | disposition home or self-care (01) | DRG 312 ==
LOC: EDBD 07:34 → M ED 07:34 → M ED INP 11:00 → ENRESERV 12:55 → M 4MAIN 16:17
PROVIDERS: ADMIT Internal Medicine; ATTEND Internal Medicine
DX: R55 Syncope and collapse (principal); U07.1 COVID-19; I69.391 Dysphagia following cerebral infarction; I12.9 Hypertensive chronic kidney disease with stage 1 through stage 4 chronic kidney disease, or unspecified chronic kidney disease; F70 Mild intellectual disabilities; G30.9 Alzheimer's disease, unspecified; F02.80 Dementia in other diseases classified elsewhere, unspecified severity, without behavioral disturbance, psychotic disturbance, mood disturbance, and anxiety; E78.5 Hyperlipidemia, unspecified; K21.9 Gastro-esophageal reflux disease without esophagitis; N18.30 Chronic kidney disease, stage 3 unspecified; Z79.899 Other long term (current) drug therapy

== ENCOUNTER → 2022-02-14 | Outpatient (CLI) | payer MEDICARE, MEDICAID ==
[~2022-02-14] MED LIST changes: +BACL5TAB2 PO; +CETACRE3 TOP; +FAMO40TA3 PO; +PLAV1TAB2 PO; +POLY1POW38 PO; +UREA20CR4 TOP
== END ==
LOC: M SLEEP 11:49
PROVIDERS: ATTEND Family Medicine
DX: R55 Syncope and collapse (principal)

== ENCOUNTER → 2022-03-08 | Outpatient (CLI) | payer MEDICARE, MEDICAID ==
[2022-03-08 10:11] LABS: BASO % 0.6 % (0.0-1.0); EOS # 0.2 10^3/uL (0.0-0.5); EOS % 3.3 % (0.0-3.0); HEMATOCRIT 46.2 % (42.0-52.0); HEMOGLOBIN 15.3 g/dl (13.5-17.5); LYMPH # 1.2 10^3/uL (1.5-5.0); LYMPH % 19.1 % (24.0-44.0); MEAN CORPUSCULAR HEMOGLOBIN 29.7 pg (27.0-33.0); MEAN CORPUSCULAR HGB CONC 33.1 g/dl (32.0-36.5); MEAN CORPUSCULAR VOLUME 89.7 fl (80.0-96.0); MONO # 0.5 10^3/uL (0.0-0.8); MONO % 8.1 % (2.0-8.0); NEUTROPHILS # 4.3 10^3/uL (1.5-8.5); NEUTROPHILS % 68.6 % (36.0-66.0); PLATELET COUNT, AUTOMATED 217 10^3/uL (150-450); RED BLOOD COUNT 5.15 10^6/uL (4.30-6.10); WHITE BLOOD COUNT 6.3 10^3/uL (4.0-10.0)
[2022-03-08 10:42] LABS: ALBUMIN 3.7 GM/DL (3.2-5.2); BILIRUBIN,TOTAL 0.7 MG/DL (0.2-1.0); C REACTIVE PROTEIN QUANTITATIV 0.3 MG/DL (0.00-0.30); CALCIUM LEVEL 8.6 MG/DL (8.8-10.2); CHOLESTEROL RISK RATIO 2.522 (<5); CREATININE FOR GFR 1.28 MG/DL (0.70-1.30); FREE T4 1.02 NG/DL (0.76-1.46); GLOMERULAR FILTRATION RATE 59.5 (>49); POTASSIUM SERUM 4.3 MEQ/L (3.5-5.1); THYROID STIMULATING HORMONE 1.54 uIU/ML (0.358-3.740); TOTAL PROTEIN 6.6 GM/DL (6.4-8.2)
== END ==
LOC: M WUC 08:18
PROVIDERS: ATTEND Family Medicine
DX: E78.5 Hyperlipidemia, unspecified (principal); I10 Essential (primary) hypertension

== ENCOUNTER → 2022-10-24 | Outpatient (CLI) | payer MEDICARE, MEDICAID ==
[~2022-10-24] MED LIST changes: +CLOP75TA99 PO; -PLAV1TAB2 PO
[2022-10-24 10:24] LABS: BASO # 0.1 10^3/uL (0.0-0.2); BASO % 0.9 % (0.0-1.0); EOS # 0.2 10^3/uL (0.0-0.5); EOS % 2.9 % (0.0-3.0); HEMATOCRIT 47.6 % (42.0-52.0); HEMOGLOBIN 15.7 g/dl (13.5-17.5); LYMPH # 1.3 10^3/uL (1.5-5.0); LYMPH % 19.2 % (24.0-44.0); MEAN CORPUSCULAR HEMOGLOBIN 30.2 pg (27.0-33.0); MEAN CORPUSCULAR VOLUME 91.5 fl (80.0-96.0); MONO # 0.6 10^3/uL (0.0-0.8); NEUTROPHILS # 4.7 10^3/uL (1.5-8.5); NEUTROPHILS % 67.4 % (36.0-66.0); PLATELET COUNT, AUTOMATED 227 10^3/uL (150-450); WHITE BLOOD COUNT 6.9 10^3/uL (4.0-10.0)
[2022-10-24 10:59] LABS: C REACTIVE PROTEIN QUANTITATIV < 0.40 MG/DL (<1.0)
[2022-10-24 11:01] LABS: CPK CREATINE PHOSPHOKINASE 772 U/L (46-171)
[2022-10-24 11:05] LABS: ALBUMIN 3.8 G/DL (3.2-5.2); ALKALINE PHOSPHATASE 88 U/L (46-116); ALT/SGPT 22 U/L (7.0-40); AST/SGOT 22 U/L (<34); BILIRUBIN,TOTAL 0.7 MG/DL (0.3-1.2); BLOOD UREA NITROGEN 19 MG/DL (9-23); CALCIUM LEVEL 8.9 MG/DL (8.3-10.6); CARBON DIOXIDE LEVEL 29 MMOL/L (20-31); CHLORIDE LEVEL 105 MMOL/L (98-107); CREATININE FOR GFR 1.28 MG/DL (0.70-1.30); FERRITIN 54.8 NG/ML (10.5-307.3); GLOMERULAR FILTRATION RATE 59.3 (>49); GLUCOSE, FASTING 81 MG/DL (74-106); MAGNESIUM LEVEL 1.8 MG/DL (1.8-2.4); POTASSIUM SERUM 4.1 MMOL/L (3.5-5.1); SODIUM LEVEL 140 MMOL/L (136-145); TOTAL PROTEIN 6.7 G/DL (5.7-8.2)
== END ==
LOC: M WUC 08:23
PROVIDERS: ATTEND Family Medicine
DX: I10 Essential (primary) hypertension (principal); E78.5 Hyperlipidemia, unspecified; Z12.5 Encounter for screening for malignant neoplasm of prostate
CPT/HCPCS: 36415; 80053; 82550; 82728; 83735; 83880; 84155; 84165; 85025; 86140; G0103

== ENCOUNTER → 2022-11-05 | Outpatient (CLI) | payer MEDICARE, MEDICAID | LOC: M SLEEP 20:00 | PROVIDERS: ATTEND Physician Assistant | DX: G47.33 Obstructive sleep apnea (adult) (pediatric) (principal) ==

== ENCOUNTER → 2022-12-20 | Outpatient (CLI) | payer MEDICARE, MEDICAID ==
[~2022-12-20] MED LIST changes: +FLUT50SP17 NARES; -FLUTISP NARES
[2022-12-20 13:09] LABS: CPK CREATINE PHOSPHOKINASE 663 U/L (46-171)
[2022-12-20 13:10] LABS: ALBUMIN 3.7 G/DL (3.2-5.2); ALKALINE PHOSPHATASE 92 U/L (46-116); ALT/SGPT 23 U/L (7.0-40); AST/SGOT 18 U/L (<34); BILIRUBIN,TOTAL 0.6 MG/DL (0.3-1.2); BLOOD UREA NITROGEN 16 MG/DL (9-23); CALCIUM LEVEL 8.7 MG/DL (8.3-10.6); CARBON DIOXIDE LEVEL 27 MMOL/L (20-31); CHLORIDE LEVEL 105 MMOL/L (98-107); CHOLESTEROL LEVEL 122 MG/DL (<200); CHOLESTEROL RISK RATIO 2.66 (<5); CREATININE FOR GFR 1.22 MG/DL (0.70-1.30); GLOMERULAR FILTRATION RATE > 60.0 (>49); GLUCOSE, FASTING 92 MG/DL (74-106); HDL CHOLESTEROL 45.8 MG/DL (>40); LDL CHOLESTEROL 61.2 MG/DL (<100); NON-HDL-C 76.2 MG/DL; SODIUM LEVEL 140 MMOL/L (136-145); TOTAL PROTEIN 6.7 G/DL (5.7-8.2); TRIGLYCERIDES LEVEL 75 MG/DL (<150)
[2022-12-20 13:12] LABS: FREE T4 0.99 NG/DL (0.89-1.76)
[2022-12-20 13:13] LABS: THYROID STIMULATING HORMONE 1.323 uIU/ML (0.55-4.78)
[2022-12-20 15:44] LABS: HEMOGLOBIN A1c 5.3 % (4.0-6.0)
[2022-12-24 18:07] LABS: CK 1 (BB) 0 % (0); CK 2 (MB) 0 % (0-3); CK 3 (MM) 100 % (97-100); CK MACRO I PERCENT 0 % (Not Observed); CK MACRO II PERCENT 0 % (Not Observed); CK TOTAL 633 U/L (41-331); INSULIN LEVEL 11.3 uIU/mL (2.6-24.9)
== END ==
LOC: M WUC 08:44
PROVIDERS: ATTEND Family Medicine
DX: R73.02 Impaired glucose tolerance (oral) (principal); I10 Essential (primary) hypertension; E78.5 Hyperlipidemia, unspecified

== ENCOUNTER → 2023-01-17 | Outpatient (CLI) | payer MEDICARE, MEDICAID ==
[2023-01-17 10:45] LABS: ALBUMIN 3.7 G/DL (3.2-5.2); ALKALINE PHOSPHATASE 83 U/L (46-116); ALT/SGPT 17 U/L (7.0-40); AST/SGOT 17 U/L (<34); BILIRUBIN,TOTAL 0.6 MG/DL (0.3-1.2); BLOOD UREA NITROGEN 17 MG/DL (9-23); CALCIUM LEVEL 8.7 MG/DL (8.3-10.6); CARBON DIOXIDE LEVEL 29 MMOL/L (20-31); CHLORIDE LEVEL 106 MMOL/L (98-107); CHOLESTEROL LEVEL 176 MG/DL (<200); CHOLESTEROL RISK RATIO 3.23 (<5); GLOMERULAR FILTRATION RATE > 60.0 (>49); GLUCOSE, FASTING 88 MG/DL (74-106); HDL CHOLESTEROL 54.4 MG/DL (>40); LDL CHOLESTEROL 105.2 MG/DL (<100); NON-HDL-C 121.6 MG/DL; POTASSIUM SERUM 4.3 MMOL/L (3.5-5.1); SODIUM LEVEL 139 MMOL/L (136-145); TOTAL PROTEIN 6.7 G/DL (5.7-8.2); TRIGLYCERIDES LEVEL 82 MG/DL (<150)
[2023-01-17 10:47] LABS: THYROID STIMULATING HORMONE 1.358 uIU/ML (0.55-4.78)
[2023-01-17 10:48] LABS: FREE T4 1.09 NG/DL (0.89-1.76)
[2023-01-17 10:51] LABS: CPK CREATINE PHOSPHOKINASE 682 U/L (46-171)
[2023-01-17 11:05] LABS: HEMOGLOBIN A1c 5.3 % (4.0-6.0)
[2023-01-21 17:10] LABS: CK 1 (BB) 0 % (0); CK 2 (MB) 0 % (0-3); CK 3 (MM) 8 % (97-100); CK MACRO I PERCENT 0 % (Not Observed); CK MACRO II PERCENT 92 % (Not Observed); CK TOTAL 650 U/L (41-331); INSULIN LEVEL 6.7 uIU/mL (2.6-24.9)
== END ==
LOC: M WUC 09:03
PROVIDERS: ATTEND Family Medicine
DX: I10 Essential (primary) hypertension (principal); R73.02 Impaired glucose tolerance (oral); E78.5 Hyperlipidemia, unspecified

== ENCOUNTER → 2023-05-19 | Outpatient (REF) | payer MEDICARE, MEDICAID | LOC: M SFHCPLAZ 14:23 | PROVIDERS: ATTEND Family Medicine | DX: E78.5 Hyperlipidemia, unspecified (principal) ==

== ENCOUNTER → 2023-05-23 | Outpatient (CLI) | payer MEDICARE, MEDICAID ==
[2023-05-23 09:52] LABS: BASO # 0.1 10^3/uL (0.0-0.2); BASO % 0.9 % (0.0-1.0); EOS # 0.3 10^3/uL (0.0-0.5); EOS % 3.7 % (0.0-3.0); HEMATOCRIT 45.5 % (42.0-52.0); HEMOGLOBIN 15.5 g/dl (13.5-17.5); LYMPH # 1.2 10^3/uL (1.5-5.0); MEAN CORPUSCULAR HEMOGLOBIN 30.4 pg (27.0-33.0); MEAN CORPUSCULAR HGB CONC 34.1 g/dl (32.0-36.5); MEAN CORPUSCULAR VOLUME 89.2 fl (80.0-96.0); MONO # 0.7 10^3/uL (0.0-0.8); MONO % 8.2 % (2.0-8.0); NEUTROPHILS # 5.9 10^3/uL (1.5-8.5); PLATELET COUNT, AUTOMATED 224 10^3/uL (150-450); WHITE BLOOD COUNT 8.2 10^3/uL (4.0-10.0)
[2023-05-23 10:16] LABS: C REACTIVE PROTEIN QUANTITATIV < 0.40 MG/DL (<1.0)
[2023-05-23 10:18] LABS: ALBUMIN 3.8 G/DL (3.2-5.2); ALKALINE PHOSPHATASE 80 U/L (46-116); ALT/SGPT 22 U/L (7.0-40); AST/SGOT 13 U/L (<34); BILIRUBIN,TOTAL 0.7 MG/DL (0.3-1.2); BLOOD UREA NITROGEN 16 MG/DL (9-23); CALCIUM LEVEL 8.8 MG/DL (8.3-10.6); CARBON DIOXIDE LEVEL 30 MMOL/L (20-31); CHLORIDE LEVEL 105 MMOL/L (98-107); CHOLESTEROL LEVEL 132 MG/DL (<200); CHOLESTEROL RISK RATIO 2.78 (<5); CREATININE FOR GFR 1.24 MG/DL (0.70-1.30); GLOMERULAR FILTRATION RATE > 60.0 (>49); GLUCOSE, FASTING 81 MG/DL (74-106); HDL CHOLESTEROL 47.4 MG/DL (>40); NON-HDL-C 84.6 MG/DL; POTASSIUM SERUM 4.2 MMOL/L (3.5-5.1); SODIUM LEVEL 141 MMOL/L (136-145); TOTAL PROTEIN 6.8 G/DL (5.7-8.2); TRIGLYCERIDES LEVEL 103 MG/DL (<150)
[2023-05-23 10:21] LABS: ERYTHROCYTE SEDIMENTATION RATE 11 mm/hr (0-20)
[2023-05-28 17:07] LABS: CK 1 (BB) 0 % (0); CK 2 (MB) 0 % (0-3); CK 3 (MM) 100 % (97-100); CK MACRO I PERCENT 0 % (Not Observed); CK MACRO II PERCENT 0 % (Not Observed); CK TOTAL 544 U/L (41-331)
== END ==
LOC: M WUC 08:07
PROVIDERS: ATTEND Family Medicine
DX: E78.5 Hyperlipidemia, unspecified (principal)

== ENCOUNTER → 2023-06-09 | Outpatient (CLI) | payer MEDICARE, MEDICAID | LOC: M SLEEP 20:00 | PROVIDERS: ATTEND Physician Assistant | DX: G47.33 Obstructive sleep apnea (adult) (pediatric) (principal) ==

== ENCOUNTER 2023-09-28 19:55 | Emergency (ER) | payer MEDICARE, MEDICAID ==
[~2023-09-28] VITALS: Ht 154.9 cm; Wt 57.9 kg
[~2023-09-28 19:55] MED LIST changes: -FLUT50SP17 NARES; +FLUTISP NARES
[2023-09-28] MEDS ORDERED: ACETAMINOPHEN TAB 650MG DOSE (2X325MG) PO ONE (23:25)
[2023-09-29 00:27] VITALS: BP 141/82; TEMP 98; O2SAT 99
== END 2023-09-29 00:29 | disposition home or self-care (01) ==
LOC: M ED 19:55
DX: S50.01XA Contusion of right elbow, initial encounter (principal); R10.9 Unspecified abdominal pain; W10.8XXA Fall (on) (from) other stairs and steps, initial encounter; I10 Essential (primary) hypertension; Z86.73 Personal history of transient ischemic attack (TIA), and cerebral infarction without residual deficits; Z88.8 Allergy status to other drugs, medicaments and biological substances; Z79.811 Long term (current) use of aromatase inhibitors; Z79.899 Other long term (current) drug therapy; Z79.83 Long term (current) use of bisphosphonates

== ENCOUNTER → 2024-03-01 | Outpatient (CLI) | payer MEDICARE, MEDICAID ==
[2024-03-01 12:38] LABS: BASO # 0.1 10^3/uL (0.0-0.2); BASO % 0.7 % (0.0-1.0); EOS # 0.1 10^3/uL (0.0-0.5); EOS % 1.3 % (0.0-3.0); HEMATOCRIT 49.6 % (42.0-52.0); HEMOGLOBIN 16.5 g/dl (13.5-17.5); LYMPH # 0.9 10^3/uL (1.5-5.0); LYMPH % 13.4 % (24.0-44.0); MEAN CORPUSCULAR HEMOGLOBIN 30.6 pg (27.0-33.0); MEAN CORPUSCULAR HGB CONC 33.3 g/dl (32.0-36.5); MEAN CORPUSCULAR VOLUME 91.9 fl (80.0-96.0); MONO # 0.5 10^3/uL (0.0-0.8); NEUTROPHILS # 5.2 10^3/uL (1.5-8.5); NEUTROPHILS % 77.3 % (36.0-66.0); PLATELET COUNT, AUTOMATED 247 10^3/uL (150-450); WHITE BLOOD COUNT 6.7 10^3/uL (4.0-10.0)
[2024-03-01 12:41] LABS: ALBUMIN 2.4 G/DL (3.2-5.2); ALKALINE PHOSPHATASE 88 U/L (46-116); ALT/SGPT 23 U/L (7.0-40); AST/SGOT 19 U/L (<34); BILIRUBIN,TOTAL 0.3 MG/DL (0.3-1.2); BLOOD UREA NITROGEN 11 MG/DL (9-23); CALCIUM LEVEL 8.4 MG/DL (8.3-10.6); CARBON DIOXIDE LEVEL 30 MMOL/L (20-31); CHLORIDE LEVEL 106 MMOL/L (98-107); CHOLESTEROL LEVEL 180 MG/DL (<200); CHOLESTEROL RISK RATIO 2.79 (<5); CREATININE FOR GFR 1.17 MG/DL (0.70-1.30); GLOMERULAR FILTRATION RATE > 60.0 (>42); GLUCOSE, FASTING 77 MG/DL (74-106); HDL CHOLESTEROL 64.3 MG/DL (>40); LDL CHOLESTEROL 91.5 MG/DL (<100); NON-HDL-C 115.7 MG/DL; POTASSIUM SERUM 4.9 MMOL/L (3.5-5.1); PSA SCREENING 3.09 NG/ML (< 4.00); SODIUM LEVEL 138 MMOL/L (136-145); TOTAL PROTEIN 5.6 G/DL (5.7-8.2); TRIGLYCERIDES LEVEL 121 MG/DL (<150)
[2024-03-01 12:43] LABS: CPK CREATINE PHOSPHOKINASE 644 U/L (46-171)
[2024-03-01 13:02] LABS: HEMOGLOBIN A1c 5.1 % (4.0-6.0)
== END ==
LOC: M PLALAB 10:21
PROVIDERS: ATTEND Family Medicine
DX: E78.5 Hyperlipidemia, unspecified (principal); I10 Essential (primary) hypertension; R73.02 Impaired glucose tolerance (oral); Z12.5 Encounter for screening for malignant neoplasm of prostate

== ENCOUNTER → 2024-09-24 | Outpatient (CLI) | payer MEDICARE, MEDICAID | LOC: M WUC 14:50 | PROVIDERS: ATTEND Family Medicine | DX: M17.0 Bilateral primary osteoarthritis of knee (principal); M76.41 Tibial collateral bursitis [Pellegrini-Stieda], right leg; M76.42 Tibial collateral bursitis [Pellegrini-Stieda], left leg ==

== ENCOUNTER → 2024-09-24 | Outpatient (CLI) | payer MEDICARE, MEDICAID ==
[2024-09-24 08:30] LABS: BASO # 0.1 10^3/uL (0.0-0.2); BASO % 0.8 % (0.0-1.0); EOS # 0.3 10^3/uL (0.0-0.5); EOS % 4.1 % (0.0-3.0); HEMATOCRIT 48.2 % (42.0-52.0); LYMPH % 12.8 % (24.0-44.0); MEAN CORPUSCULAR HEMOGLOBIN 30.7 pg (27.0-33.0); MEAN CORPUSCULAR HGB CONC 33.2 g/dl (32.0-36.5); MEAN CORPUSCULAR VOLUME 92.5 fl (80.0-96.0); MONO # 0.6 10^3/uL (0.0-0.8); MONO % 7.4 % (2.0-8.0); NEUTROPHILS # 5.5 10^3/uL (1.5-8.5); NEUTROPHILS % 74.8 % (36.0-66.0); PLATELET COUNT, AUTOMATED 241 10^3/uL (150-450); RED BLOOD COUNT 5.21 10^6/uL (4.30-6.10); WHITE BLOOD COUNT 7.4 10^3/uL (4.0-10.0)
[2024-09-24 08:55] LABS: PSA SCREENING 3.04 NG/ML (< 4.00)
[2024-09-24 08:56] LABS: HEMOGLOBIN A1c 5.1 % (4.0-6.0)
[2024-09-24 08:59] LABS: TOTAL 25(OH) VITAMIN D 42.1 NG/ML (20.0-100.0)
[2024-09-24 09:00] LABS: ALBUMIN 2.3 G/DL (3.2-5.2); ALKALINE PHOSPHATASE 88 U/L (40-129); ALT/SGPT 22 U/L (7.0-40); AST/SGOT 26 U/L (<34); BILIRUBIN,TOTAL 0.5 MG/DL (0.3-1.2); BLOOD UREA NITROGEN 18 MG/DL (9-23); CALCIUM LEVEL 8.3 MG/DL (8.3-10.6); CARBON DIOXIDE LEVEL 29 MMOL/L (20-31); CHLORIDE LEVEL 108 MMOL/L (98-107); CHOLESTEROL LEVEL 210 MG/DL (<200); CHOLESTEROL RISK RATIO 2.84 (<5); CREATININE FOR GFR 1.15 MG/DL (0.70-1.30); GLOMERULAR FILTRATION RATE > 60.0 (>42); GLUCOSE, FASTING 84 MG/DL (74-106); HDL CHOLESTEROL 73.9 MG/DL (>40); LDL CHOLESTEROL 119.5 MG/DL (<100); NON-HDL-C 136.1 MG/DL; POTASSIUM SERUM 5.4 MMOL/L (3.5-5.1); PTH INTACT 38.4 PG/ML (18.5-88.0); SODIUM LEVEL 142 MMOL/L (136-145); TOTAL PROTEIN 5.7 G/DL (5.7-8.2); TRIGLYCERIDES LEVEL 83 MG/DL (<150)
[2024-09-24 09:05] LABS: CPK CREATINE PHOSPHOKINASE 682 U/L (46-171)
[2024-09-25 08:17] LABS: T P ELECTROPHORESIS SO 5.7 g/dL (6.1-8.1)
[2024-09-28 03:19] LABS: TISSUE TRANSGLUTAMINASE IgA < 1.0 U/mL (<15.0)
[2024-09-28 08:33] LABS: ALBUMIN SPEP 2.7 g/dL (3.8-4.8); ALPHA-1-GLOBULINS SO 0.3 g/dL (0.2-0.3); ALPHA-2-GLOBULINS SO 0.9 g/dL (0.5-0.9); BETA 2 GLOBULIN 0.6 g/dL (0.2-0.5); BETA-GLOBULIN SO 0.3 g/dL (0.4-0.6)
== END ==
LOC: M LAB 07:12
PROVIDERS: ATTEND Family Medicine
DX: I12.9 Hypertensive chronic kidney disease with stage 1 through stage 4 chronic kidney disease, or unspecified chronic kidney disease (principal); E78.5 Hyperlipidemia, unspecified; R73.02 Impaired glucose tolerance (oral); Z12.5 Encounter for screening for malignant neoplasm of prostate; E55.9 Vitamin D deficiency, unspecified; N18.31 Chronic kidney disease, stage 3a; M17.0 Bilateral primary osteoarthritis of knee; M76.41 Tibial collateral bursitis [Pellegrini-Stieda], right leg; M76.42 Tibial collateral bursitis [Pellegrini-Stieda], left leg
CPT/HCPCS: 36415; 73564; 73565; 80053; 80061; 82306; 82550; 83036; 83970; 84155; 84165; 85025; 86364; G0103

== ENCOUNTER → 2025-07-05 | Outpatient (CLI) | payer MEDICARE, MEDICAID ==
[~2025-07-05] MED LIST changes: +ERGO125013 PO
[2025-07-05 12:52] LABS: BASO # 0.1 10^3/uL (0.0-0.2); BASO % 1.2 % (0.0-1.0); EOS # 0.2 10^3/uL (0.0-0.5); EOS % 4.0 % (0.0-3.0); LYMPH # 1.0 10^3/uL (1.5-5.0); LYMPH % 19.0 % (24.0-44.0); MONO # 0.4 10^3/uL (0.0-0.8); MONO % 8.0 % (2.0-8.0); NEUTROPHILS # 3.4 10^3/uL (1.5-8.5); NEUTROPHILS % 67.8 % (36.0-66.0); PLATELET COUNT, AUTOMATED 265 10^3/uL (150-450)
[2025-07-05 12:53] LABS: APPEARANCE, URINE CLEAR (CLEAR); BACTERIA, URINE AUTO NEGATIVE (NEGATIVE); BILIRUBIN, URINE AUTO NEGATIVE (NEGATIVE); BLOOD, URINE BLOOD 1+ (NEGATIVE); GLUCOSE, URINE (UA) AUTO NEGATIVE (NEGATIVE); KETONE, URINE AUTO NEGATIVE (NEGATIVE); LEUKOCYTE ESTERASE, URINE AUTO NEGATIVE (NEGATIVE); MUCUS, URINE SMALL (NEGATIVE); NITRITE, URINE AUTO NEGATIVE (NEGATIVE); PROTEIN, URINE AUTO 3+ mg/dL (NEGATIVE); RBC, URINE AUTO 0 /HPF (0-3); SPECIFIC GRAVITY URINE AUTO 1.015 (1.002-1.035); SQUAMOUS EPITHELIAL CELL UR AU 0 /HPF (0-6); UROBILINOGEN, URINE AUTO 0.2 mg/dL (0.0-2.0); WBC, URINE AUTO 8 /HPF (0-3)
[2025-07-05 13:07] LABS: ESTIMATED AVERAGE GLUCOSE 105.0 MG/DL (60-110)
[2025-07-05 13:14] LABS: PSA SCREENING 3.82 NG/ML (< 4.00)
[2025-07-05 13:18] LABS: TOTAL 25(OH) VITAMIN D 41.9 NG/ML (20.0-100.0)
[2025-07-05 13:19] LABS: ALT/SGPT 17.0 U/L (7.0-40); AST/SGOT 27.0 U/L (<34); CALCIUM LEVEL 8.4 MG/DL (8.3-10.6); CARBON DIOXIDE LEVEL 31.0 MMOL/L (20-31); CHLORIDE LEVEL 106.0 MMOL/L (98-107); CHOLESTEROL LEVEL 222.0 MG/DL (<200); CHOLESTEROL RISK RATIO 2.79 (<5); CPK CREATINE PHOSPHOKINASE 659.0 U/L (46-171); CREATININE FOR GFR 1.23 MG/DL (0.70-1.30); CREATININE, URINE 112.3 MG/DL; GLOMERULAR FILTRATION RATE 62.8 (>42); LDL CHOLESTEROL 120.9 MG/DL (<100); NON-HDL-C 142.7 MG/DL; POTASSIUM SERUM 4.5 MMOL/L (3.5-5.1); PTH INTACT 43.1 PG/ML (18.5-88.0); SODIUM LEVEL 142.0 MMOL/L (136-145); TRIGLYCERIDES LEVEL 109.0 MG/DL (<150)
[2025-07-05 13:31] LABS: MALB URINE SIEMENS > 3800.0 MG/L; MAU/CREAT RATIO 3383.7 MCG/MG (0.0-30.0)
== END ==
LOC: M WUC 08:46
PROVIDERS: ATTEND Family Medicine
DX: I11.0 Hypertensive heart disease with heart failure (principal); E78.5 Hyperlipidemia, unspecified; E55.9 Vitamin D deficiency, unspecified; I50.32 Chronic diastolic (congestive) heart failure; Z12.5 Encounter for screening for malignant neoplasm of prostate; R73.02 Impaired glucose tolerance (oral)
CPT/HCPCS: 36415; 80053; 80061; 81001; 81517; 82043; 82306; 82550; 83036; 83880; 83970; 85025; G0103

== ENCOUNTER → 2025-07-11 | Outpatient (CLI) | payer MEDICARE, MEDICAID ==
[2025-07-11 11:50] LABS: ALT/SGPT 19 U/L (7.0-40); AST/SGOT 28 U/L (<34); CALCIUM LEVEL 7.4 MG/DL (8.3-10.6); CARBON DIOXIDE LEVEL 29 MMOL/L (20-31); CHLORIDE LEVEL 103 MMOL/L (98-107); COMPLEMENT C4 32.7 MG/DL (12-36); CREATININE FOR GFR 1.15 MG/DL (0.70-1.30); GLOMERULAR FILTRATION RATE 68.0 (>42); MAGNESIUM LEVEL 1.7 MG/DL (1.8-2.4); POTASSIUM SERUM 4.2 MMOL/L (3.5-5.1); SODIUM LEVEL 139 MMOL/L (136-145)
[2025-07-11 14:26] LABS: HEPATITIS C VIRUS ABY INDEX 0.06 INDEX (<0.8)
[2025-07-12 12:47] LABS: CRYOGLOBULINS NEGATIVE (NEGATIVE)
[2025-07-12 23:07] LABS: PROTEIN, TOTAL SO 4.7 g/dL (6.1-8.1)
== END ==
LOC: M LAB 07:37
PROVIDERS: ATTEND Family Medicine
DX: N04.9 Nephrotic syndrome with unspecified morphologic changes (principal)

== ENCOUNTER → 2025-07-25 | Outpatient (REF) | payer MEDICARE, MEDICAID | LOC: M SFHCPLAZ 12:26 | PROVIDERS: ATTEND Family Medicine | DX: Z53.9 Procedure and treatment not carried out, unspecified reason (principal) ==

== ENCOUNTER → 2025-07-25 | Outpatient (CLI) | payer MEDICARE, MEDICAID ==
[2025-07-25 16:29] LABS: BASO # 0.1 10^3/uL (0.0-0.2); BASO % 0.9 % (0.0-1.0); EOS # 0.2 10^3/uL (0.0-0.5); EOS % 2.6 % (0.0-3.0); LYMPH # 1.4 10^3/uL (1.5-5.0); LYMPH % 19.5 % (24.0-44.0); MONO # 0.5 10^3/uL (0.0-0.8); MONO % 7.4 % (2.0-8.0); NEUTROPHILS # 4.9 10^3/uL (1.5-8.5); NEUTROPHILS % 69.5 % (36.0-66.0); PLATELET COUNT, AUTOMATED 289 10^3/uL (150-450)
[2025-07-25 16:35] LABS: RHEUMATOID FACTOR QUANT < 3.5 IU/ML (<14)
[2025-07-25 16:36] LABS: ALT/SGPT 19 U/L (7.0-40); AST/SGOT 27 U/L (<34); C REACTIVE PROTEIN QUANTITATIV < 0.50 MG/DL (<1.0); CALCIUM LEVEL 7.8 MG/DL (8.3-10.6); CARBON DIOXIDE LEVEL 29 MMOL/L (20-31); CHLORIDE LEVEL 103 MMOL/L (98-107); CHOLESTEROL LEVEL 265 MG/DL (<200); CHOLESTEROL RISK RATIO 2.97 (<5); CREATININE FOR GFR 1.13 MG/DL (0.70-1.30); GLOMERULAR FILTRATION RATE 69.5 (>42); LDL CHOLESTEROL 151.2 MG/DL (<100); MAGNESIUM LEVEL 1.8 MG/DL (1.8-2.4); NON-HDL-C 175.8 MG/DL; POTASSIUM SERUM 4.4 MMOL/L (3.5-5.1); SODIUM LEVEL 138 MMOL/L (136-145); TRIGLYCERIDES LEVEL 123 MG/DL (<150)
[2025-07-25 17:26] LABS: FREE T4 0.96 NG/DL (0.89-1.76)
[2025-07-25 17:30] LABS: CPK CREATINE PHOSPHOKINASE 606 U/L (46-171)
== END ==
LOC: M PLALAB 12:47
PROVIDERS: ATTEND Family Medicine
DX: I50.32 Chronic diastolic (congestive) heart failure (principal); I11.0 Hypertensive heart disease with heart failure; E78.5 Hyperlipidemia, unspecified; N04.9 Nephrotic syndrome with unspecified morphologic changes

== ENCOUNTER → 2025-08-08 | Outpatient (CLI) | payer MEDICARE, MEDICAID | LOC: M RAD 07:53 | PROVIDERS: ATTEND Family Medicine | DX: K74.00 Hepatic fibrosis, unspecified (principal); N04.9 Nephrotic syndrome with unspecified morphologic changes ==